=== PATIENT | male | born 1980 | race African-American/Black ===

== ENCOUNTER 2017-05-14 06:45 | Emergency (ER) | payer MEDICAID ==
[~2017-05-14] VITALS: Ht 170.2 cm; Wt 68.0 kg
[~2017-05-14 06:45] MED LIST: AZIT250T PO; BACL-11 PO; CLIN-80 PO; DIPH-423 PO; GUAI120015 PO; HYDR-3927 PO; HYDR12.5 PO; NAPR-56 PO; ONDA4TAB12 PO; ONDA4TAB59 PO; ONDA4TAB6 PO; ONDA8TAB9 PO; PSEU120T55 PO; TOLN30CR TP
[2017-05-14 07:53] LABS: BASOPHILS % (AUTO) 0.5 % (0-1); EOSINOPHILS # (AUTO) 0.3 X10'3 (0-0.9); HEMATOCRIT 43.9 % (42.0-52.0); HEMOGLOBIN 14.8 g/dl (14.0-17.9); LYMPHOCYTES # (AUTO) 1.6 X10'3 (1.1-4.8); LYMPHOCYTES % (AUTO) 22.9 % (21-51); MEAN CORPUSCULAR HEMOGLOBIN 31.8 PG (27.0-31.0); MEAN CORPUSCULAR HGB CONC 33.8 % (33.0-36.5); MEAN CORPUSCULAR VOLUME 94.2 FL (78-98); MEAN PLATELET VOLUME 8.5 FL (7.4-10.4); MONOCYTES # (AUTO) 0.8 X10'3 (0-0.9); MONOCYTES % (AUTO) 11.5 % (2-12); NEUTROPHILS # (AUTO) 4.2 X10'3 (1.8-7.7); NEUTROPHILS % (AUTO) 61.1 % (42-75); PLATELET COUNT 245 X10'3 (140-440); RED BLOOD COUNT 4.66 X10'6 (4.70-6.10); RED CELL DISTRIBUTION WIDTH 13.4 % (11.5-14.5); WHITE BLOOD COUNT 6.9 X10'3 (4.5-11.0)
[2017-05-14 08:15] LABS: ALANINE AMINOTRANSFERASE 34 U/L (12-78); ALBUMIN 3.6 G/DL (3.4-5.0); ALKALINE PHOSPHATASE 70 IU/L (46-116); ANION GAP 6 (8-16); ASPARTATE AMINO TRANSFERASE 26 U/L (10-37); BILIRUBIN,TOTAL 0.3 MG/DL (0.1-1.0); BLOOD UREA NITROGEN 9 MG/DL (7-18); BUN/CREATININE RATIO 9.6 (5.4-32.0); CALCIUM 8.9 MG/DL (8.5-10.1); CHLORIDE 105 MMOL/L (99-107); CREATININE 0.94 MG/DL (0.60-1.10); GLUCOSE 83 MG/DL (70-104); POTASSIUM 3.8 MMOL/L (3.5-5.1); SODIUM 142 MMOL/L (135-145); TOTAL CARBON DIOXIDE 30.7 MMOL/L (24-32); TOTAL PROTEIN 7.2 G/DL (6.4-8.2); eGFR > 90 ML/MIN
[2017-05-14] MEDS ORDERED: AZIT-63 PO (09:40)
[2017-05-14 10:38] VITALS: BP 147/96
[2017-05-28] MEDS ORDERED: CLIN150C2 PO (03:08)
[2017-05-28] MEDS ORDERED: PRED20TA PO (03:08)
[2017-05-29] MEDS ORDERED: ALB0.5UD IH (22:31)
== END 2017-05-14 10:42 | disposition home or self-care (01) ==
LOC: ER 06:45
DX: J20.9 Acute bronchitis, unspecified (principal); G62.9 Polyneuropathy, unspecified; I10 Essential (primary) hypertension; J45.909 Unspecified asthma, uncomplicated; E11.9 Type 2 diabetes mellitus without complications; G89.29 Other chronic pain; M54.9 Dorsalgia, unspecified; F12.10 Cannabis abuse, uncomplicated; F17.210 Nicotine dependence, cigarettes, uncomplicated; Z90.89 Acquired absence of other organs; Z85.118 Personal history of other malignant neoplasm of bronchus and lung; Z59.0 Homelessness; Z88.0 Allergy status to penicillin; Z88.5 Allergy status to narcotic agent; Z79.899 Other long term (current) drug therapy
CPT/HCPCS: 36415; 80053; 85025; 93005; 99285

== ENCOUNTER 2017-08-28 01:36 | Emergency (ER) | payer MEDICAID ==
[~2017-08-28] VITALS: Ht 170.2 cm; Wt 71.1 kg
[2017-08-28] MEDS ORDERED: ondansetron 4mg rapidly disintigrating tab PO ONE (02:10)
[2017-08-28] MEDS ORDERED: ONDA4TAB9 PO (02:11)
[2017-08-28 06:51] VITALS: BP 132/106
== END 2017-08-28 02:30 | disposition home or self-care (01) ==
LOC: ER 01:37
DX: A08.4 Viral intestinal infection, unspecified (principal); I10 Essential (primary) hypertension; J45.909 Unspecified asthma, uncomplicated; G89.29 Other chronic pain; E11.42 Type 2 diabetes mellitus with diabetic polyneuropathy; F12.10 Cannabis abuse, uncomplicated; Z88.6 Allergy status to analgesic agent; Z88.0 Allergy status to penicillin; Z88.5 Allergy status to narcotic agent; Z79.899 Other long term (current) drug therapy; Z59.0 Homelessness; Z85.118 Personal history of other malignant neoplasm of bronchus and lung
CPT/HCPCS: 99283

== ENCOUNTER 2017-09-10 09:04 | Emergency (ER) | payer MEDICAID ==
[~2017-09-10] VITALS: Ht 170.2 cm; Wt 70.0 kg
[~2017-09-10 09:04] MED LIST changes: +ONDA4TAB9 PO
[2017-09-10 09:13] VITALS: BP 150/89
[2017-09-10] MEDS ORDERED: TETanus/Pertussis (Acell)/Diphther VAC/PF (Tdap-Adult) 0.5ml syringe IM ONE (09:45)
== END 2017-09-10 10:13 | disposition home or self-care (01) ==
LOC: ER 09:05
DX: L73.9 Follicular disorder, unspecified (principal); I10 Essential (primary) hypertension; E11.42 Type 2 diabetes mellitus with diabetic polyneuropathy; G89.29 Other chronic pain; J45.909 Unspecified asthma, uncomplicated; F12.10 Cannabis abuse, uncomplicated; Z85.118 Personal history of other malignant neoplasm of bronchus and lung; Z59.0 Homelessness; Z88.0 Allergy status to penicillin; Z88.5 Allergy status to narcotic agent; Z79.899 Other long term (current) drug therapy
CPT/HCPCS: 90471; 90715; 99283

== ENCOUNTER 2017-09-13 07:10 | Emergency (ER) | payer MEDICAID ==
[~2017-09-13] VITALS: Ht 170.2 cm; Wt 70.8 kg
[2017-09-13 07:39] VITALS: BP 152/83
[2017-09-14] MEDS ORDERED: SULF1TAB49 PO (23:48)
[2017-09-14] MEDS ORDERED: CEPH-572 PO (23:49)
== END 2017-09-13 08:01 | disposition home or self-care (01) ==
LOC: ER 07:11
DX: T68.XXXA Hypothermia, initial encounter (principal); T69.9XXA Effect of reduced temperature, unspecified, initial encounter; E11.42 Type 2 diabetes mellitus with diabetic polyneuropathy; I10 Essential (primary) hypertension; J45.909 Unspecified asthma, uncomplicated; G89.29 Other chronic pain; F12.10 Cannabis abuse, uncomplicated; Z85.118 Personal history of other malignant neoplasm of bronchus and lung; Z59.0 Homelessness; Z88.0 Allergy status to penicillin; Z88.5 Allergy status to narcotic agent; Z79.899 Other long term (current) drug therapy; X31.XXXA Exposure to excessive natural cold, initial encounter
CPT/HCPCS: 99283

== ENCOUNTER 2017-09-14 23:28 | Emergency (ER) | payer MEDICAID ==
[~2017-09-14] VITALS: Ht 165.1 cm; Wt 69.3 kg
[2017-09-14] MEDS ORDERED: SULF1TAB49 PO (23:48)
[2017-09-14] MEDS ORDERED: CEPH-572 PO (23:49)
[2017-09-15 00:09] VITALS: BP 138/97
== END 2017-09-15 00:14 | disposition home or self-care (01) ==
LOC: ER 23:28
DX: L02.414 Cutaneous abscess of left upper limb (principal); E11.42 Type 2 diabetes mellitus with diabetic polyneuropathy; I10 Essential (primary) hypertension; J45.909 Unspecified asthma, uncomplicated; G89.29 Other chronic pain; F12.10 Cannabis abuse, uncomplicated; Z85.118 Personal history of other malignant neoplasm of bronchus and lung; Z95.0 Presence of cardiac pacemaker; Z59.0 Homelessness; Z88.0 Allergy status to penicillin; Z88.5 Allergy status to narcotic agent; Z79.899 Other long term (current) drug therapy
CPT/HCPCS: 99283

== ENCOUNTER 2017-09-25 04:11 | Emergency (ER) | payer MEDICAID ==
[~2017-09-25] VITALS: Ht 170.2 cm; Wt 71.4 kg
[2017-09-25 05:01] VITALS: BP 153/101
== END 2017-09-25 05:02 | disposition home or self-care (01) ==
LOC: ER 04:12
DX: J06.9 Acute upper respiratory infection, unspecified (principal); E11.42 Type 2 diabetes mellitus with diabetic polyneuropathy; F17.200 Nicotine dependence, unspecified, uncomplicated; J45.909 Unspecified asthma, uncomplicated; G89.29 Other chronic pain; I10 Essential (primary) hypertension; Z59.0 Homelessness; Z95.0 Presence of cardiac pacemaker; Z88.5 Allergy status to narcotic agent; Z88.0 Allergy status to penicillin; Z79.899 Other long term (current) drug therapy
CPT/HCPCS: 71045; 99283

== ENCOUNTER 2017-10-12 12:11 | Emergency (ER) | payer MEDICAID ==
[~2017-10-12] VITALS: Ht 170.2 cm; Wt 72.0 kg
[~2017-10-12 12:11] MED LIST changes: -BACL-11 PO; -CLIN-80 PO; -DIPH-423 PO; -GUAI120015 PO; -HYDR-3927 PO; -HYDR12.5 PO; -NAPR-56 PO; -ONDA4TAB12 PO; -ONDA4TAB59 PO; -ONDA4TAB6 PO; -ONDA4TAB9 PO; -ONDA8TAB9 PO; -PSEU120T55 PO; -TOLN30CR TP
[2017-10-12 12:47] VITALS: BP 107/63
[2017-10-13] MEDS ORDERED: CLIN300C3 PO (02:31)
== END 2017-10-12 16:06 | disposition left against medical advice (07) ==
LOC: ER 12:12
DX: R51 Headache (principal); Z53.21 Procedure and treatment not carried out due to patient leaving prior to being seen by health care provider

== ENCOUNTER 2017-10-13 01:19 | Emergency (ER) | payer MEDICAID ==
[~2017-10-13] VITALS: Ht 170.2 cm; Wt 75.0 kg
[2017-10-13] MEDS ORDERED: CLIN300C3 PO (02:31)
== END 2017-10-13 02:36 | disposition home or self-care (01) ==
LOC: ER 01:19
DX: L02.01 Cutaneous abscess of face (principal); J45.909 Unspecified asthma, uncomplicated; I10 Essential (primary) hypertension; E11.42 Type 2 diabetes mellitus with diabetic polyneuropathy; G89.29 Other chronic pain; Z88.5 Allergy status to narcotic agent; Z88.0 Allergy status to penicillin; Z95.0 Presence of cardiac pacemaker; Z90.89 Acquired absence of other organs; Z59.0 Homelessness
CPT/HCPCS: 99283

== ENCOUNTER 2017-12-02 04:54 | Emergency (ER) | payer MEDICAID ==
[~2017-12-02] VITALS: Ht 170.2 cm; Wt 74.0 kg
[2017-12-02 04:56] VITALS: BP 135/106
== END 2017-12-02 07:29 | disposition home or self-care (01) ==
LOC: ER 04:54
DX: I10 Essential (primary) hypertension (principal); J45.909 Unspecified asthma, uncomplicated; E11.42 Type 2 diabetes mellitus with diabetic polyneuropathy; F12.10 Cannabis abuse, uncomplicated; G89.29 Other chronic pain; Z59.0 Homelessness; Z88.0 Allergy status to penicillin; Z88.5 Allergy status to narcotic agent; Z95.0 Presence of cardiac pacemaker
CPT/HCPCS: 99281

== ENCOUNTER 2018-03-10 10:22 | Emergency (ER) | payer MEDICAID ==
[~2018-03-10] VITALS: Ht 170.2 cm; Wt 56.0 kg
[2018-03-10 10:40] VITALS: BP 161/113
[2018-03-10 11:06] LABS: COLOR,URINE Yellow (Yellow); GLUCOSE, URINE Negative (Neg); KETONES,URINE Trace mg/dl (Neg); LEUKOCYTE ESTERASE ,URINE Negative (Neg); NITRITES, URINE Negative (Neg); OCCULT BLOOD,URINE Negative (Neg); PROTEIN,URINE Trace mg/dl (Neg)
[2018-03-10 11:07] LABS: UA COLLECTION TYPE CLN CATCH MIDSTREAM
[2018-03-10 11:08] LABS: CLARITY,URINE SLIGHTLY CLOUDY (Clear)
[2018-03-10 11:15] LABS: BACTERIA,URINE FEW /HPF (Neg); MUCUS STRANDS MANY /LPF (Neg); RBC,URINE NONE SEEN /HPF (0-2); SQUAMOUS EPITHELIAL CELL,UR FEW /LPF (FEW); WBC,URINE 0-4 /HPF (0-4)
[2018-03-10 11:27] LABS: BASOPHILS # (AUTO) 0.1 X10'3 (0-0.2); BASOPHILS % (AUTO) 1.1 % (0-1); EOSINOPHILS # (AUTO) 0.2 X10'3 (0-0.9); EOSINOPHILS % (AUTO) 3.8 % (0-6); HEMATOCRIT 42.9 % (42.0-52.0); HEMOGLOBIN 14.7 g/dl (14.0-17.9); LYMPHOCYTES # (AUTO) 2.1 X10'3 (1.1-4.8); MEAN CORPUSCULAR HEMOGLOBIN 32.5 PG (27.0-31.0); MEAN CORPUSCULAR HGB CONC 34.2 % (33.0-36.5); MEAN PLATELET VOLUME 8.3 FL (7.4-10.4); MONOCYTES # (AUTO) 0.6 X10'3 (0-0.9); MONOCYTES % (AUTO) 12.6 % (2-12); NEUTROPHILS # (AUTO) 1.9 X10'3 (1.8-7.7); NEUTROPHILS % (AUTO) 39.5 % (42-75); PLATELET COUNT 251 X10'3 (140-440); RED BLOOD COUNT 4.51 X10'6 (4.70-6.10); WHITE BLOOD COUNT 4.8 X10'3 (4.5-11.0)
[2018-03-10 11:37] LABS: PROTHROMBIN TIME 10.7 SECONDS (9.0-12.0)
[2018-03-10 11:42] LABS: ALANINE AMINOTRANSFERASE 25 U/L (12-78); ALBUMIN 3.8 G/DL (3.4-5.0); ALBUMIN/GLOBULIN RATIO 1.2 (1.1-1.5); ALKALINE PHOSPHATASE 67 IU/L (46-116); ANION GAP 4 (8-16); ASPARTATE AMINO TRANSFERASE 13 U/L (10-37); BILIRUBIN,TOTAL 0.4 MG/DL (0.1-1.0); BLOOD UREA NITROGEN 11 MG/DL (7-18); BUN/CREATININE RATIO 9.2 (5.4-32.0); CALCIUM 8.7 MG/DL (8.5-10.1); CHLORIDE 104 MMOL/L (99-107); CREATININE 1.19 MG/DL (0.60-1.10); GLUCOSE 87 MG/DL (70-104); LIPASE 72 U/L (73-393); POTASSIUM 3.5 MMOL/L (3.5-5.1); SODIUM 138 MMOL/L (135-145); TOTAL CARBON DIOXIDE 29.6 MMOL/L (24-32); eGFR 84 ML/MIN
[2018-03-10] MEDS ORDERED: ibuprofen tablet 400 MG TABLET PO ONE (12:20)
== END 2018-03-10 13:56 | disposition home or self-care (01) ==
LOC: ER 10:22
DX: R07.81 Pleurodynia (principal); R11.0 Nausea; R06.02 Shortness of breath; F12.10 Cannabis abuse, uncomplicated; I10 Essential (primary) hypertension; J45.909 Unspecified asthma, uncomplicated; G89.29 Other chronic pain; F32.9 Major depressive disorder, single episode, unspecified; F20.9 Schizophrenia, unspecified; E11.42 Type 2 diabetes mellitus with diabetic polyneuropathy; Z88.0 Allergy status to penicillin; Z59.0 Homelessness; Z88.5 Allergy status to narcotic agent; Z85.118 Personal history of other malignant neoplasm of bronchus and lung; X50.9XXA Other and unspecified overexertion or strenuous movements or postures, initial encounter; Y93.39 Activity, other involving climbing, rappelling and jumping off; Y92.89 Other specified places as the place of occurrence of the external cause; Y99.8 Other external cause status
CPT/HCPCS: 36415; 80053; 81001; 83690; 85025; 85610; 99284

== ENCOUNTER 2018-04-22 04:50 | Emergency (ER) | payer MEDICAID ==
[~2018-04-22] VITALS: Ht 160 cm; Wt 56.2 kg
[2018-04-22 05:12] VITALS: BP 153/110
[2018-04-22] MEDS ORDERED: AZIT-63 PO (05:26)
[2018-04-22] MEDS ORDERED: PSEU120T55 PO (05:26)
[2018-04-22] MEDS ORDERED: IBUP-1986 PO (05:26)
== END 2018-04-22 05:41 | disposition home or self-care (01) ==
LOC: ER 04:51
DX: H66.91 Otitis media, unspecified, right ear (principal); E11.42 Type 2 diabetes mellitus with diabetic polyneuropathy; I10 Essential (primary) hypertension; J45.909 Unspecified asthma, uncomplicated; G89.29 Other chronic pain; F12.90 Cannabis use, unspecified, uncomplicated; Z95.0 Presence of cardiac pacemaker; Z98.890 Other specified postprocedural states; Z59.0 Homelessness; Z88.0 Allergy status to penicillin; Z88.5 Allergy status to narcotic agent; Z79.2 Long term (current) use of antibiotics; Z79.899 Other long term (current) drug therapy
CPT/HCPCS: 99283

== ENCOUNTER 2018-05-25 11:25 | Emergency (ER) | payer MEDICAID ==
[~2018-05-25] VITALS: Ht 172.7 cm; Wt 72.0 kg
[~2018-05-25 11:25] MED LIST changes: +IBUP-1986 PO; +PSEU120T55 PO
[2018-05-25] MEDS ORDERED: LORazepam 1 MG tablet PO ONE (12:20)
[2018-05-25] MEDS ORDERED: haloperidol lactate 5mg/ml inj IM ONE (12:20)
[2018-05-25 13:38] VITALS: BP 150/100
== END 2018-05-25 13:39 | disposition home or self-care (01) ==
LOC: ER 11:26
DX: R10.13 Epigastric pain (principal); Z88.5 Allergy status to narcotic agent; F12.10 Cannabis abuse, uncomplicated; F15.10 Other stimulant abuse, uncomplicated; I10 Essential (primary) hypertension; J45.909 Unspecified asthma, uncomplicated; G89.29 Other chronic pain; F32.9 Major depressive disorder, single episode, unspecified; F20.9 Schizophrenia, unspecified; E11.42 Type 2 diabetes mellitus with diabetic polyneuropathy; Z88.0 Allergy status to penicillin; Z59.0 Homelessness; Z85.118 Personal history of other malignant neoplasm of bronchus and lung; R11.0 Nausea
CPT/HCPCS: 96372; 99283; J1630

== ENCOUNTER 2018-05-30 10:07 | Emergency (ER) | payer MEDICAID ==
[~2018-05-30] VITALS: Ht 170.2 cm; Wt 66.7 kg
[2018-05-30 10:57] LABS: BASOPHILS # (AUTO) 0.1 X10'3 (0-0.2); BASOPHILS % (AUTO) 1.2 % (0-1); EOSINOPHILS # (AUTO) 0.3 X10'3 (0-0.9); EOSINOPHILS % (AUTO) 4.2 % (0-6); HEMATOCRIT 45.3 % (42.0-52.0); LYMPHOCYTES # (AUTO) 2.5 X10'3 (1.1-4.8); LYMPHOCYTES % (AUTO) 41.7 % (21-51); MEAN CORPUSCULAR HEMOGLOBIN 31.5 PG (27.0-31.0); MEAN CORPUSCULAR HGB CONC 33.1 % (33.0-36.5); MEAN CORPUSCULAR VOLUME 95.1 FL (78-98); MEAN PLATELET VOLUME 8.5 FL (7.4-10.4); MONOCYTES # (AUTO) 0.4 X10'3 (0-0.9); MONOCYTES % (AUTO) 7.5 % (2-12); NEUTROPHILS # (AUTO) 2.7 X10'3 (1.8-7.7); NEUTROPHILS % (AUTO) 45.4 % (42-75); PLATELET COUNT 260 X10'3 (140-440); RED BLOOD COUNT 4.77 X10'6 (4.70-6.10); RED CELL DISTRIBUTION WIDTH 13.7 % (11.5-14.5)
[2018-05-30 11:07] LABS: ALANINE AMINOTRANSFERASE 29 U/L (12-78); ALBUMIN/GLOBULIN RATIO 1.1 (1.1-1.5); ALKALINE PHOSPHATASE 77 IU/L (46-116); ANION GAP 9 (8-16); ASPARTATE AMINO TRANSFERASE 21 U/L (10-37); BILIRUBIN,TOTAL 0.4 MG/DL (0.1-1.0); BLOOD UREA NITROGEN 13 MG/DL (7-18); BUN/CREATININE RATIO 14.6 (5.4-32.0); CALCIUM 9.4 MG/DL (8.5-10.1); CHLORIDE 102 MMOL/L (99-107); CREATININE 0.89 MG/DL (0.60-1.10); GLUCOSE 88 MG/DL (70-104); SODIUM 140 MMOL/L (135-145); TOTAL CARBON DIOXIDE 29.3 MMOL/L (24-32); TOTAL PROTEIN 7.8 G/DL (6.4-8.2); eGFR > 90 ML/MIN
[2018-05-30] MEDS ORDERED: LIDOcaine Viscous 15ml cup PO ONE (12:05)
[2018-05-30] MEDS ORDERED: magnesium hydroxide 30ml (MOM) UD suspension PO ONE (12:05)
[2018-05-30] MEDS ORDERED: dicyclomine 10 MG capsule PO ONE (12:05)
[2018-05-30 12:20] VITALS: BP 97/58
== END 2018-05-30 13:49 | disposition home or self-care (01) ==
LOC: ER 10:08
DX: R10.13 Epigastric pain (principal); I10 Essential (primary) hypertension; J44.9 Chronic obstructive pulmonary disease, unspecified; E11.42 Type 2 diabetes mellitus with diabetic polyneuropathy; F15.90 Other stimulant use, unspecified, uncomplicated; F12.90 Cannabis use, unspecified, uncomplicated; Z88.0 Allergy status to penicillin; Z88.6 Allergy status to analgesic agent; Z90.89 Acquired absence of other organs; Z95.0 Presence of cardiac pacemaker; Z59.0 Homelessness
CPT/HCPCS: 36415; 80053; 85025; 85610; 99284

== ENCOUNTER 2018-06-04 06:57 | Emergency (ER) | payer MEDICAID ==
[~2018-06-04] VITALS: Ht 170.2 cm; Wt 68.2 kg
[2018-06-04 07:18] VITALS: BP 143/99
== END 2018-06-04 07:45 | disposition home or self-care (01) ==
LOC: ER 06:57
DX: T69.9XXA Effect of reduced temperature, unspecified, initial encounter (principal); J32.9 Chronic sinusitis, unspecified; E11.42 Type 2 diabetes mellitus with diabetic polyneuropathy; I10 Essential (primary) hypertension; G89.29 Other chronic pain; F12.90 Cannabis use, unspecified, uncomplicated; J45.909 Unspecified asthma, uncomplicated; F15.90 Other stimulant use, unspecified, uncomplicated; Z59.0 Homelessness; Z95.0 Presence of cardiac pacemaker; Z90.89 Acquired absence of other organs; Z85.118 Personal history of other malignant neoplasm of bronchus and lung; Z88.0 Allergy status to penicillin; Z88.5 Allergy status to narcotic agent; Y92.9 Unspecified place or not applicable
CPT/HCPCS: 99283

== ENCOUNTER 2018-06-24 17:36 | Emergency (ER) | payer MEDICAID ==
[~2018-06-24] VITALS: Ht 170.2 cm; Wt 72.7 kg
[2018-06-24 17:49] VITALS: BP 149/101
== END 2018-06-24 18:29 | disposition left against medical advice (07) ==
LOC: ER 17:36
DX: R05 Cough (principal); R09.89 Other specified symptoms and signs involving the circulatory and respiratory systems; J00 Acute nasopharyngitis [common cold]; Z53.21 Procedure and treatment not carried out due to patient leaving prior to being seen by health care provider

== ENCOUNTER 2018-07-24 03:26 | Emergency (ER) | payer MEDICAID ==
[~2018-07-24] VITALS: Ht 170.2 cm; Wt 72.9 kg
[2018-07-24 03:29] VITALS: BP 156/105
--- NOTE | 2018-07-24 03:41 | NUR ---
AT BED FOR EXAMINATION.
== END 2018-07-24 04:09 | disposition home or self-care (01) ==
LOC: ER 03:27
DX: J06.9 Acute upper respiratory infection, unspecified (principal); E11.42 Type 2 diabetes mellitus with diabetic polyneuropathy; I10 Essential (primary) hypertension; J45.909 Unspecified asthma, uncomplicated; G89.29 Other chronic pain; Z90.89 Acquired absence of other organs; Z95.0 Presence of cardiac pacemaker; F12.90 Cannabis use, unspecified, uncomplicated; F15.90 Other stimulant use, unspecified, uncomplicated; Z88.0 Allergy status to penicillin; Z88.5 Allergy status to narcotic agent; Z79.2 Long term (current) use of antibiotics; Z79.899 Other long term (current) drug therapy; Z59.0 Homelessness
CPT/HCPCS: 99281

== ENCOUNTER 2018-08-28 06:57 | Emergency (ER) | payer MEDICAID ==
[~2018-08-28] VITALS: Ht 170.2 cm; Wt 70.2 kg
[2018-08-28] MEDS ORDERED: SUCR1TAB34 PO (07:49)
[2018-08-28] MEDS ORDERED: PANT-47 PO (07:49)
[2018-08-28] MEDS ORDERED: mag hydrox/Alum hydrox/simeth 30ml oral suspension PO ONE (07:50)
[2018-08-28] MEDS ORDERED: pantoprazole 40mg Tablet.DR PO ONE (07:50)
[2018-08-28] MEDS ORDERED: LIDOcaine Viscous 15ml cup PO ONE (07:50)
--- NOTE | 2018-08-28 08:04 | NUR ---
pt states his abd pain improving and his pain is now a 1 out of 10, meds administered per MD order
[2018-08-28 08:12] VITALS: BP 157/96
== END 2018-08-28 08:16 | disposition home or self-care (01) ==
LOC: ER 06:58
DX: R10.13 Epigastric pain (principal); E11.42 Type 2 diabetes mellitus with diabetic polyneuropathy; I10 Essential (primary) hypertension; J45.909 Unspecified asthma, uncomplicated; G89.29 Other chronic pain; F12.90 Cannabis use, unspecified, uncomplicated; F15.90 Other stimulant use, unspecified, uncomplicated; Z95.0 Presence of cardiac pacemaker; Z98.890 Other specified postprocedural states; Z59.0 Homelessness; Z88.0 Allergy status to penicillin; Z88.5 Allergy status to narcotic agent; Z79.2 Long term (current) use of antibiotics; Z79.899 Other long term (current) drug therapy
CPT/HCPCS: 99284

== ENCOUNTER 2018-09-05 08:55 | Emergency (ER) | payer MEDICAID ==
[~2018-09-05] VITALS: Ht 172.7 cm; Wt 58.5 kg
[~2018-09-05 08:55] MED LIST changes: +PANT-47 PO; +SUCR1TAB34 PO
[2018-09-05 09:12] VITALS: BP 153/104
[2018-09-05] MEDS ORDERED: SULF1TAB49 PO (10:50)
--- NOTE | 2018-09-05 11:04 | NUR ---
patient seen and discharged by provider
[2018-09-07 08:17] LABS: RPR Non Reactive (Non Reactive)
== END 2018-09-05 11:04 | disposition home or self-care (01) ==
LOC: ER 08:56
DX: L02.211 Cutaneous abscess of abdominal wall (principal); I10 Essential (primary) hypertension; G89.29 Other chronic pain; F15.90 Other stimulant use, unspecified, uncomplicated; F12.90 Cannabis use, unspecified, uncomplicated; E11.9 Type 2 diabetes mellitus without complications; E11.42 Type 2 diabetes mellitus with diabetic polyneuropathy; Z79.899 Other long term (current) drug therapy; Z59.0 Homelessness; Z88.0 Allergy status to penicillin; Z88.6 Allergy status to analgesic agent; Z90.89 Acquired absence of other organs; Z95.0 Presence of cardiac pacemaker
CPT/HCPCS: 36415; 86592; 99283

== ENCOUNTER 2018-09-19 19:55 | Emergency (ER) | payer MEDICAID ==
[~2018-09-19] VITALS: Ht 170.2 cm; Wt 72.7 kg
[2018-09-19 20:03] VITALS: BP 159/111
[2018-09-19] MEDS ORDERED: DIPH25CA83 PO (21:57)
== END 2018-09-19 22:07 | disposition home or self-care (01) ==
LOC: ER 19:55
DX: L29.9 Pruritus, unspecified (principal); I10 Essential (primary) hypertension; E11.40 Type 2 diabetes mellitus with diabetic neuropathy, unspecified; G89.29 Other chronic pain; M54.9 Dorsalgia, unspecified; F12.90 Cannabis use, unspecified, uncomplicated; F15.90 Other stimulant use, unspecified, uncomplicated; J45.909 Unspecified asthma, uncomplicated; Z95.0 Presence of cardiac pacemaker; Z59.0 Homelessness; Z88.6 Allergy status to analgesic agent; Z88.0 Allergy status to penicillin
CPT/HCPCS: 82948; 99282

== ENCOUNTER 2018-09-21 02:51 | Emergency (ER) | payer MEDICAID ==
[~2018-09-21] VITALS: Ht 172.7 cm; Wt 70.0 kg
[~2018-09-21 02:51] MED LIST changes: +DIPH25CA83 PO
[2018-09-21 02:58] VITALS: BP 113/66
== END 2018-09-21 03:13 | disposition home or self-care (01) ==
LOC: ER 02:52
DX: L29.8 Other pruritus (principal); G89.29 Other chronic pain; I10 Essential (primary) hypertension; F20.9 Schizophrenia, unspecified; F32.9 Major depressive disorder, single episode, unspecified; F17.200 Nicotine dependence, unspecified, uncomplicated; F12.10 Cannabis abuse, uncomplicated; F15.10 Other stimulant abuse, uncomplicated; E11.42 Type 2 diabetes mellitus with diabetic polyneuropathy; J45.909 Unspecified asthma, uncomplicated; Z85.118 Personal history of other malignant neoplasm of bronchus and lung; Z88.0 Allergy status to penicillin; Z59.0 Homelessness; Z95.0 Presence of cardiac pacemaker; Z88.5 Allergy status to narcotic agent
CPT/HCPCS: 99281

== ENCOUNTER 2018-11-08 02:23 | Emergency (ER) | payer MEDICAID ==
[~2018-11-08] VITALS: Ht 172.7 cm; Wt 70.2 kg
[2018-11-08 02:26] VITALS: BP 163/115
== END 2018-11-08 03:02 | disposition home or self-care (01) ==
LOC: ER 02:24
DX: Z02.89 Encounter for other administrative examinations (principal); R45.1 Restlessness and agitation; E11.42 Type 2 diabetes mellitus with diabetic polyneuropathy; I10 Essential (primary) hypertension; J45.909 Unspecified asthma, uncomplicated; G89.29 Other chronic pain; F12.90 Cannabis use, unspecified, uncomplicated; F15.90 Other stimulant use, unspecified, uncomplicated; Z95.0 Presence of cardiac pacemaker; Z98.890 Other specified postprocedural states; Z88.0 Allergy status to penicillin; Z88.5 Allergy status to narcotic agent; Z79.2 Long term (current) use of antibiotics; Z79.899 Other long term (current) drug therapy
CPT/HCPCS: 99281

== ENCOUNTER 2018-12-10 01:58 | Emergency (ER) | payer MEDICAID ==
[~2018-12-10] VITALS: Ht 172.7 cm; Wt 54.5 kg
[2018-12-10 02:13] VITALS: BP 192/115
[2018-12-10] MEDS ORDERED: diphenhydrAMINE 25mg capsule PO ONE (03:05)
== END 2018-12-10 03:20 | disposition home or self-care (01) ==
LOC: ER 01:58
DX: L29.9 Pruritus, unspecified (principal); E11.42 Type 2 diabetes mellitus with diabetic polyneuropathy; I10 Essential (primary) hypertension; J45.909 Unspecified asthma, uncomplicated; G89.29 Other chronic pain; F12.90 Cannabis use, unspecified, uncomplicated; F15.90 Other stimulant use, unspecified, uncomplicated; Z88.0 Allergy status to penicillin; Z88.5 Allergy status to narcotic agent; Z79.899 Other long term (current) drug therapy; Z59.0 Homelessness
CPT/HCPCS: 99282; Q0163

== ENCOUNTER 2019-05-19 08:22 | Emergency (ER) | payer MEDICAID, OTHER ==
[~2019-05-19] VITALS: Ht 172.7 cm; Wt 72.7 kg
[2019-05-19] MEDS ORDERED: normal saline 1000ML IV soln IVB ONE (08:55)
[2019-05-19 10:34] VITALS: BP 152/109
== END 2019-05-19 10:38 | disposition home or self-care (01) ==
LOC: ER 08:22
DX: E86.0 Dehydration (principal); E11.42 Type 2 diabetes mellitus with diabetic polyneuropathy; I10 Essential (primary) hypertension; J45.909 Unspecified asthma, uncomplicated; G89.29 Other chronic pain; F31.9 Bipolar disorder, unspecified; F20.9 Schizophrenia, unspecified; F12.90 Cannabis use, unspecified, uncomplicated; F15.90 Other stimulant use, unspecified, uncomplicated; Z85.118 Personal history of other malignant neoplasm of bronchus and lung; Z95.0 Presence of cardiac pacemaker; Z90.89 Acquired absence of other organs; Z98.890 Other specified postprocedural states; Z59.0 Homelessness; Z88.0 Allergy status to penicillin; Z88.5 Allergy status to narcotic agent; Z79.899 Other long term (current) drug therapy
CPT/HCPCS: 96360; 99283; J7030

== ENCOUNTER 2019-05-20 18:10 | Emergency (ER) | payer MEDICAID, OTHER ==
[~2019-05-20] VITALS: Ht 172.7 cm; Wt 68.0 kg
[2019-05-20 18:25] VITALS: BP 143/92
[2019-05-20] MEDS ORDERED: bacitracin 15gm ointment TP ONE (19:00)
[2019-05-20] MEDS ORDERED: TETanus/Pertussis (Acell)/Diphther VAC/PF (Tdap-Adult) 0.5ml syringe IM ONE (19:00)
== END 2019-05-20 19:47 | disposition home or self-care (01) ==
LOC: ER 18:12
DX: S81.812A Laceration without foreign body, left lower leg, initial encounter (principal); E11.42 Type 2 diabetes mellitus with diabetic polyneuropathy; I10 Essential (primary) hypertension; J45.909 Unspecified asthma, uncomplicated; G89.29 Other chronic pain; F31.9 Bipolar disorder, unspecified; F20.9 Schizophrenia, unspecified; F12.90 Cannabis use, unspecified, uncomplicated; F15.90 Other stimulant use, unspecified, uncomplicated; Z95.0 Presence of cardiac pacemaker; Z90.89 Acquired absence of other organs; Z98.890 Other specified postprocedural states; Z59.0 Homelessness; Z85.118 Personal history of other malignant neoplasm of bronchus and lung; Z88.0 Allergy status to penicillin; Z88.5 Allergy status to narcotic agent; Z79.899 Other long term (current) drug therapy; W25.XXXA Contact with sharp glass, initial encounter; Y93.89 Activity, other specified; Y92.89 Other specified places as the place of occurrence of the external cause; Y99.8 Other external cause status
CPT/HCPCS: 12001; 90471; 99283

== ENCOUNTER 2019-07-18 22:24 | Emergency (ER) | payer SELFPAY ==
[~2019-07-18] VITALS: Ht 172.7 cm; Wt 65.0 kg
[2019-07-19 01:10] VITALS: BP 137/85
[2019-07-19] MEDS ORDERED: SULF1TAB48 PO (01:22)
[2019-07-19] MEDS ORDERED: sulfamethoxazole/trimethoprim DS (800/160mg) tablet PO ONE (01:25)
[2019-07-19] MEDS ORDERED: naproxen 500mg tablet PO ONE (01:25)
[2019-07-19] MEDS ORDERED: lidocaine 1.5% w/epinephrine 1:200,000 10ml vial MPF IJ ONE (01:25)
[2019-07-19] MEDS ORDERED: TETanus/Pertussis (Acell)/Diphther VAC/PF (Tdap-Adult) 0.5ml syringe IMVAC ONE (01:25)
--- NOTE | 2019-07-19 01:26 | NUR ---
pt left the ER briskly and I went out to [facility] to talk to him with security. He is refusing all treatment. He said he doesn't want his prescription as well. I handed him his prescription and he said "No, I don't want it." I asked him again to take it, it is a prescription for an antibiotic that he needs and he said "No, I don't want it. I don't need it." MD royal.
[2019-07-19] MEDS ORDERED: LIDOcaine 1% w/epiNEPHrine 1:200,000 30ml vial IJ ONE (01:30)
== END 2019-07-19 01:28 | disposition home or self-care (01) ==
LOC: ER 22:25
DX: L02.413 Cutaneous abscess of right upper limb (principal); I10 Essential (primary) hypertension; J45.909 Unspecified asthma, uncomplicated; E11.42 Type 2 diabetes mellitus with diabetic polyneuropathy; G89.29 Other chronic pain; F31.9 Bipolar disorder, unspecified; F20.9 Schizophrenia, unspecified; Z95.0 Presence of cardiac pacemaker; Z98.890 Other specified postprocedural states; F12.90 Cannabis use, unspecified, uncomplicated; F15.90 Other stimulant use, unspecified, uncomplicated; Z59.0 Homelessness; Z88.0 Allergy status to penicillin; Z88.5 Allergy status to narcotic agent; Z79.2 Long term (current) use of antibiotics; Z79.899 Other long term (current) drug therapy
CPT/HCPCS: 99283

== ENCOUNTER 2021-09-06 06:34 | Emergency (ER) | payer MEDICAID ==
[~2021-09-06] VITALS: Ht 172.7 cm; Wt 90.0 kg
[2021-09-06] MEDS ORDERED: OMEP40CA21 PO ×2 (07:06→07:07)
[2021-09-06 07:19] VITALS: BP 150/98
== END 2021-09-06 07:21 | disposition home or self-care (01) ==
LOC: ER 06:35
DX: R10.13 Epigastric pain (principal); F12.10 Cannabis abuse, uncomplicated; F15.10 Other stimulant abuse, uncomplicated; I10 Essential (primary) hypertension; J45.909 Unspecified asthma, uncomplicated; F31.9 Bipolar disorder, unspecified; G89.29 Other chronic pain; M54.9 Dorsalgia, unspecified; Z59.00 Homelessness unspecified; Z88.0 Allergy status to penicillin; Z88.5 Allergy status to narcotic agent; Z79.899 Other long term (current) drug therapy
CPT/HCPCS: 99283

== ENCOUNTER 2021-10-15 18:09 | Emergency (ER) | payer MEDICAID ==
[~2021-10-15] VITALS: Ht 172.7 cm; Wt 90.0 kg
[~2021-10-15 18:09] MED LIST changes: +OMEP40CA21 PO
[2021-10-15 21:22] VITALS: BP 114/71
[2021-10-15] MEDS ORDERED: TETanus/Pertussis (Acell)/Diphther VAC/PF (Tdap-Adult) 0.5ml syringe IMVAC ONE (22:25)
[2021-10-15] MEDS ORDERED: SULF1TAB49 PO (22:42)
[2021-10-15] MEDS ORDERED: sulfamethoxazole/trimethoprim DS (800/160mg) tablet PO ONE (23:10)
[2021-10-15] MEDS ORDERED: ibuprofen tablet 400 MG TABLET PO ONE (23:10)
== END 2021-10-15 23:28 ==
LOC: ER 18:10
DX: L02.01 Cutaneous abscess of face (principal); I10 Essential (primary) hypertension; J45.909 Unspecified asthma, uncomplicated; E11.9 Type 2 diabetes mellitus without complications; G89.29 Other chronic pain; M54.9 Dorsalgia, unspecified; F32.9 Major depressive disorder, single episode, unspecified; F20.9 Schizophrenia, unspecified; F12.10 Cannabis abuse, uncomplicated; F15.10 Other stimulant abuse, uncomplicated; Z59.00 Homelessness unspecified; Z88.0 Allergy status to penicillin; Z88.5 Allergy status to narcotic agent; Z79.899 Other long term (current) drug therapy
CPT/HCPCS: 10060; 12013; 90471; 90715; 99283

== ENCOUNTER 2021-12-25 12:03 | Emergency (ER) | payer MEDICAID ==
[~2021-12-25] VITALS: Ht 172.7 cm; Wt 72.5 kg
[2021-12-25 12:18] VITALS: BP 122/91
[2021-12-25] MEDS ORDERED: benzonatate 100mg capsule PO ONE (14:25)
[2021-12-25] MEDS ORDERED: BENZ-38 PO (14:58)
== END 2021-12-25 15:15 | disposition home or self-care (01) ==
LOC: ER 12:04
DX: R05.9 Cough, unspecified (principal); I10 Essential (primary) hypertension; J45.909 Unspecified asthma, uncomplicated; E11.42 Type 2 diabetes mellitus with diabetic polyneuropathy; G89.29 Other chronic pain; F31.9 Bipolar disorder, unspecified; F20.9 Schizophrenia, unspecified; F12.90 Cannabis use, unspecified, uncomplicated; F15.90 Other stimulant use, unspecified, uncomplicated; Z59.00 Homelessness unspecified; Z98.890 Other specified postprocedural states; Z88.0 Allergy status to penicillin; Z88.5 Allergy status to narcotic agent; Z79.899 Other long term (current) drug therapy; Z90.89 Acquired absence of other organs; Z95.0 Presence of cardiac pacemaker
CPT/HCPCS: 71045; 99283

== ENCOUNTER 2022-04-03 13:49 | Emergency (ER) | payer MEDICAID ==
[~2022-04-03] VITALS: Ht 172.7 cm; Wt 75.0 kg
[2022-04-03 14:02] VITALS: BP 137/98
[2022-04-03] MEDS ORDERED: LIDOCAINE 1%/EPI 1:100,000 inj. 10 ML multi-dose vial IJ ONE (14:10)
[2022-04-03] MEDS ORDERED: TETanus/Pertussis (Acell)/Diphther VAC/PF (Tdap-Adult) 0.5ml syringe IMVAC ONE (14:10)
[2022-04-03] MEDS ORDERED: bacitracin 15gm ointment TP ONE (14:10)
[2022-04-03] MEDS ORDERED: CEPH500C2 PO (16:00)
== END 2022-04-03 16:47 | disposition home or self-care (01) ==
LOC: ER 13:49
DX: L03.113 Cellulitis of right upper limb (principal); L02.413 Cutaneous abscess of right upper limb; R53.83 Other fatigue; E11.42 Type 2 diabetes mellitus with diabetic polyneuropathy; I10 Essential (primary) hypertension; J45.909 Unspecified asthma, uncomplicated; G89.29 Other chronic pain; F31.9 Bipolar disorder, unspecified; F20.9 Schizophrenia, unspecified; F12.90 Cannabis use, unspecified, uncomplicated; F15.90 Other stimulant use, unspecified, uncomplicated; Z85.118 Personal history of other malignant neoplasm of bronchus and lung; Z95.0 Presence of cardiac pacemaker; Z90.89 Acquired absence of other organs; Z98.890 Other specified postprocedural states; Z59.00 Homelessness unspecified; Z88.0 Allergy status to penicillin; Z88.5 Allergy status to narcotic agent; Z79.2 Long term (current) use of antibiotics; Z79.899 Other long term (current) drug therapy
CPT/HCPCS: 10060; 99283

== ENCOUNTER 2022-04-05 07:23 | Emergency (ER) | payer MEDICAID ==
[~2022-04-05] VITALS: Ht 172.7 cm; Wt 75.0 kg
[~2022-04-05 07:23] MED LIST changes: +CEPH500C2 PO
[2022-04-05 07:25] VITALS: BP 154/100
== END 2022-04-05 08:55 | disposition home or self-care (01) ==
LOC: ER 07:24
DX: L02.511 Cutaneous abscess of right hand (principal); I10 Essential (primary) hypertension; J45.909 Unspecified asthma, uncomplicated; G89.29 Other chronic pain; M54.9 Dorsalgia, unspecified; E11.9 Type 2 diabetes mellitus without complications; F20.9 Schizophrenia, unspecified; F32.A Depression, unspecified; F15.10 Other stimulant abuse, uncomplicated; F12.10 Cannabis abuse, uncomplicated; Z59.00 Homelessness unspecified; E06.9 Thyroiditis, unspecified; Z88.0 Allergy status to penicillin; Z88.5 Allergy status to narcotic agent; Z79.899 Other long term (current) drug therapy; Z79.1 Long term (current) use of non-steroidal anti-inflammatories (NSAID); Z79.2 Long term (current) use of antibiotics
CPT/HCPCS: 99282; J7030; A6449

== ENCOUNTER 2022-04-09 08:16 | Emergency (ER) | payer MEDICAID ==
[~2022-04-09] VITALS: Ht 172.7 cm; Wt 68.0 kg
[2022-04-09 08:22] VITALS: BP 156/106
== END 2022-04-09 09:50 | disposition home or self-care (01) ==
LOC: ER 08:16
DX: S51.801D Unspecified open wound of right forearm, subsequent encounter (principal); Z48.00 Encounter for change or removal of nonsurgical wound dressing; I10 Essential (primary) hypertension; E11.9 Type 2 diabetes mellitus without complications; F31.9 Bipolar disorder, unspecified; F20.9 Schizophrenia, unspecified; G89.29 Other chronic pain; M54.9 Dorsalgia, unspecified; F12.10 Cannabis abuse, uncomplicated; F15.10 Other stimulant abuse, uncomplicated; F17.200 Nicotine dependence, unspecified, uncomplicated; Z59.00 Homelessness unspecified; Z88.0 Allergy status to penicillin; Z88.5 Allergy status to narcotic agent; Z79.899 Other long term (current) drug therapy; Z79.1 Long term (current) use of non-steroidal anti-inflammatories (NSAID); Z79.2 Long term (current) use of antibiotics; X58.XXXD Exposure to other specified factors, subsequent encounter
CPT/HCPCS: 99281

== ENCOUNTER 2022-04-17 09:55 | Emergency (ER) | payer MEDICAID ==
[~2022-04-17] VITALS: Ht 172.7 cm; Wt 75.0 kg
[~2022-04-17 09:55] MED LIST changes: -CEPH500C2 PO
[2022-04-17 09:56] VITALS: BP 134/91
== END 2022-04-17 11:18 | disposition home or self-care (01) ==
LOC: ER 09:55
DX: S41.101A Unspecified open wound of right upper arm, initial encounter (principal); E11.42 Type 2 diabetes mellitus with diabetic polyneuropathy; I10 Essential (primary) hypertension; J45.909 Unspecified asthma, uncomplicated; G89.29 Other chronic pain; F31.9 Bipolar disorder, unspecified; F20.9 Schizophrenia, unspecified; F12.90 Cannabis use, unspecified, uncomplicated; F15.90 Other stimulant use, unspecified, uncomplicated; Z85.118 Personal history of other malignant neoplasm of bronchus and lung; Z95.0 Presence of cardiac pacemaker; Z90.89 Acquired absence of other organs; Z98.890 Other specified postprocedural states; Z59.00 Homelessness unspecified; Z88.0 Allergy status to penicillin; Z88.5 Allergy status to narcotic agent; Z79.2 Long term (current) use of antibiotics; Z79.899 Other long term (current) drug therapy; W57.XXXA Bitten or stung by nonvenomous insect and other nonvenomous arthropods, initial encounter; Y93.89 Activity, other specified; Y92.89 Other specified places as the place of occurrence of the external cause; Y99.8 Other external cause status
CPT/HCPCS: 99281

== ENCOUNTER 2022-07-08 00:35 | Emergency (ER) | payer MEDICAID ==
[~2022-07-08] VITALS: Ht 172.7 cm; Wt 64.6 kg
[2022-07-08 00:40] VITALS: BP 143/95
== END 2022-07-08 04:30 | disposition home or self-care (01) ==
LOC: ER 00:36
DX: J06.9 Acute upper respiratory infection, unspecified (principal); Z20.822 Contact with and (suspected) exposure to COVID-19; I10 Essential (primary) hypertension; J45.909 Unspecified asthma, uncomplicated; E11.9 Type 2 diabetes mellitus without complications; G89.29 Other chronic pain; M54.50 Low back pain, unspecified; F15.20 Other stimulant dependence, uncomplicated; F12.90 Cannabis use, unspecified, uncomplicated; Z88.0 Allergy status to penicillin; Z88.5 Allergy status to narcotic agent; Z59.00 Homelessness unspecified
CPT/HCPCS: 71045; 87502; 87503; 87635; 99284; C9803

== ENCOUNTER 2022-07-22 07:36 | Emergency (ER) | payer MEDICAID ==
[~2022-07-22] VITALS: Ht 172.7 cm; Wt 75.0 kg
[2022-07-22 08:15] VITALS: BP 155/101
== END 2022-07-22 10:20 | disposition left against medical advice (07) ==
LOC: ER 07:37
DX: L02.413 Cutaneous abscess of right upper limb (principal); Z53.21 Procedure and treatment not carried out due to patient leaving prior to being seen by health care provider

== ENCOUNTER 2022-08-11 04:41 | Emergency (ER) | payer MEDICAID ==
[~2022-08-11] VITALS: Ht 172.7 cm; Wt 81.8 kg
[2022-08-11 05:05] VITALS: BP 164/110
== END 2022-08-11 06:57 | disposition home or self-care (01) ==
LOC: ER 04:42
DX: T75.89XA Other specified effects of external causes, initial encounter (principal); T68.XXXA Hypothermia, initial encounter; Z59.00 Homelessness unspecified; I10 Essential (primary) hypertension; J45.909 Unspecified asthma, uncomplicated; G89.29 Other chronic pain; E11.42 Type 2 diabetes mellitus with diabetic polyneuropathy; F31.9 Bipolar disorder, unspecified; F20.9 Schizophrenia, unspecified; F17.200 Nicotine dependence, unspecified, uncomplicated; F12.90 Cannabis use, unspecified, uncomplicated; F15.90 Other stimulant use, unspecified, uncomplicated; Z90.89 Acquired absence of other organs; Z95.0 Presence of cardiac pacemaker; Z88.0 Allergy status to penicillin; Z88.5 Allergy status to narcotic agent; Z79.899 Other long term (current) drug therapy; X58.XXXA Exposure to other specified factors, initial encounter; Y93.89 Activity, other specified; Y92.89 Other specified places as the place of occurrence of the external cause; Y99.8 Other external cause status
CPT/HCPCS: 99281

== ENCOUNTER 2022-08-28 04:09 | Emergency (ER) | payer MEDICAID ==
[~2022-08-28] VITALS: Ht 172.7 cm; Wt 55.0 kg
[2022-08-28 04:21] VITALS: BP 138/104
--- NOTE | 2022-08-28 07:43 | NUR ---
Called for patient from waiting [facility] @[phone], not in lobby.
== END 2022-08-28 07:52 | disposition left against medical advice (07) ==
LOC: ER 04:10
DX: R10.9 Unspecified abdominal pain (principal); Z53.21 Procedure and treatment not carried out due to patient leaving prior to being seen by health care provider

== ENCOUNTER 2022-09-18 14:36 | Emergency (ER) | payer MEDICAID ==
[~2022-09-18] VITALS: Ht 172.7 cm; Wt 75.0 kg
[2022-09-18 15:03] VITALS: BP 158/93
== END 2022-09-18 18:51 | disposition left against medical advice (07) ==
LOC: ER 14:37
DX: R05.9 Cough, unspecified (principal); R09.89 Other specified symptoms and signs involving the circulatory and respiratory systems; Z53.21 Procedure and treatment not carried out due to patient leaving prior to being seen by health care provider

== ENCOUNTER 2022-09-23 15:13 | Emergency (ER) | payer MEDICAID ==
[~2022-09-23] VITALS: Ht 172.7 cm; Wt 68.2 kg
[2022-09-23 15:21] VITALS: BP_DIAS 110
[2022-09-23] MEDS ORDERED: amLODIPine 5mg tablet PO ONE (15:45)
[2022-09-23] MEDS ORDERED: AMLO5TAB PO (15:45)
[2022-09-23 16:15] VITALS: BP_SYST 162
== END 2022-09-23 16:25 ==
LOC: ER 15:13
DX: I10 Essential (primary) hypertension (principal); J45.909 Unspecified asthma, uncomplicated; E11.9 Type 2 diabetes mellitus without complications; G89.29 Other chronic pain; M54.9 Dorsalgia, unspecified; E03.9 Hypothyroidism, unspecified; F31.9 Bipolar disorder, unspecified; F20.9 Schizophrenia, unspecified; F12.10 Cannabis abuse, uncomplicated; Z56.0 Unemployment, unspecified; Z88.0 Allergy status to penicillin; Z88.5 Allergy status to narcotic agent; Z79.899 Other long term (current) drug therapy; Z79.1 Long term (current) use of non-steroidal anti-inflammatories (NSAID)
CPT/HCPCS: 82948; 99283

== ENCOUNTER 2022-12-20 09:11 | Emergency (ER) | payer MEDICAID ==
[~2022-12-20] VITALS: Ht 172.7 cm; Wt 78.0 kg
[~2022-12-20 09:11] MED LIST changes: +AMLO5TAB PO
[2022-12-20 09:34] VITALS: BP 146/107
[2022-12-20] MEDS ORDERED: FAMO40TA73 PO (09:49)
== END 2022-12-20 11:01 | disposition home or self-care (01) ==
LOC: ER 09:11
DX: R10.10 Upper abdominal pain, unspecified (principal); I10 Essential (primary) hypertension; J45.909 Unspecified asthma, uncomplicated; E11.9 Type 2 diabetes mellitus without complications; G89.29 Other chronic pain; F31.9 Bipolar disorder, unspecified; F20.9 Schizophrenia, unspecified; E11.42 Type 2 diabetes mellitus with diabetic polyneuropathy; F12.90 Cannabis use, unspecified, uncomplicated; Z95.0 Presence of cardiac pacemaker; Z90.89 Acquired absence of other organs; Z72.89 Other problems related to lifestyle; Z59.00 Homelessness unspecified; Z88.0 Allergy status to penicillin; Z88.5 Allergy status to narcotic agent; Z79.899 Other long term (current) drug therapy
CPT/HCPCS: 99283

== ENCOUNTER 2023-06-19 10:19 | Emergency (ER) | payer MEDICAID ==
[~2023-06-19] VITALS: Ht 172.7 cm; Wt 65.1 kg
[~2023-06-19 10:19] MED LIST changes: +FAMO40TA73 PO
[2023-06-19 10:26] VITALS: BP 129/94; PULSE 87; RESP 16; O2SAT 98
--- NOTE | 2023-06-19 17:51 | NUR ---
I have reviewed and agree with all interventions, assessments performed and documented by Leticia Ayala LVN
[2023-06-19 18:15] VITALS: TEMP 97.3
== END 2023-06-19 18:16 | disposition home or self-care (01) ==
LOC: ER 10:20
DX: B34.9 Viral infection, unspecified (principal); Z20.822 Contact with and (suspected) exposure to COVID-19
CPT/HCPCS: 36415; 71046; 87502; 87503; 87811; 99284

== ENCOUNTER 2024-03-05 07:57 | Emergency (ER) | payer MEDICAID ==
[~2024-03-05] VITALS: Ht 172.7 cm; Wt 75.0 kg
[2024-03-05 10:40] LABS: STREP A SCREEN NEGATIVE (Neg)
[2024-03-05] MEDS: dexamethasone sod phosphate 10mg/ml inj IM STA (11:16)
[2024-03-05] MEDS: diphenhydrAMINE 25 MG/10 ML UD oral solution PO ONE (11:16)
[2024-03-05 11:18] VITALS: BP 142/97; PULSE 83; RESP 16; O2SAT 99
[2024-03-05 11:59] VITALS: TEMP 97.3
== END 2024-03-05 11:40 | disposition home or self-care (01) ==
LOC: ER 07:57
DX: J02.8 Acute pharyngitis due to other specified organisms (principal); G62.9 Polyneuropathy, unspecified; J40 Bronchitis, not specified as acute or chronic; G89.29 Other chronic pain; M54.9 Dorsalgia, unspecified; F32.A Depression, unspecified; F12.90 Cannabis use, unspecified, uncomplicated; Z88.0 Allergy status to penicillin; Z88.5 Allergy status to narcotic agent; Z79.899 Other long term (current) drug therapy; Z79.1 Long term (current) use of non-steroidal anti-inflammatories (NSAID); Z79.2 Long term (current) use of antibiotics
CPT/HCPCS: 87081; 87880; 96372; 99283; J1100; Q0163

== ENCOUNTER 2024-03-09 23:47 | Emergency (ER) | payer MEDICAID ==
[~2024-03-09] VITALS: Ht 172.7 cm; Wt 75.0 kg
[2024-03-10 00:48] VITALS: BP 149/104; PULSE 85; O2SAT 99
[2024-03-10 01:28] VITALS: RESP 18
[2024-03-10] MEDS: HYDROcodone/acetaminophen 5mg/325mg tablet PO ONE (01:28)
[2024-03-10] MEDS: ibuprofen tablet 400 MG TABLET PO ONE (01:28)
[2024-03-10] MEDS: predniSONE 20 mg tablet PO ONE (01:28)
[2024-03-10] MEDS ORDERED: ACET-2006 PO (01:44)
[2024-03-10] MEDS ORDERED: IBUP-24 PO (01:44)
[2024-03-10 01:49] VITALS: TEMP 97.3
== END 2024-03-10 01:59 | disposition home or self-care (01) ==
LOC: ER 23:47
DX: S90.822A Blister (nonthermal), left foot, initial encounter (principal); M79.672 Pain in left foot; J45.909 Unspecified asthma, uncomplicated; G89.29 Other chronic pain; M54.9 Dorsalgia, unspecified; F32.A Depression, unspecified; F12.90 Cannabis use, unspecified, uncomplicated; Z88.5 Allergy status to narcotic agent; Z88.0 Allergy status to penicillin; Z79.899 Other long term (current) drug therapy; Z79.1 Long term (current) use of non-steroidal anti-inflammatories (NSAID); X58.XXXA Exposure to other specified factors, initial encounter; Y93.89 Activity, other specified; Y92.89 Other specified places as the place of occurrence of the external cause; Y99.8 Other external cause status
CPT/HCPCS: 73630; 99284; J7512

== ENCOUNTER 2024-03-23 09:36 | Emergency (ER) | payer MEDICAID ==
[~2024-03-23] VITALS: Ht 172.7 cm; Wt 72.0 kg
[~2024-03-23 09:36] MED LIST changes: +IBUP-24 PO
--- NOTE | 2024-03-23 09:46 | NUR ---
ATTEMPT TO TRIAGE X1 AT 0935 (IN BATHROOM) ATTEMPT TO TRIAGE X2 AT 0946 (IN BATHROOM)
[2024-03-23 09:51] VITALS: BP 135/99; PULSE 72; RESP 16; TEMP 97.3; O2SAT 99
== END 2024-03-23 11:15 | disposition left against medical advice (07) ==
LOC: ER 09:36
DX: M79.602 Pain in left arm (principal); Z53.21 Procedure and treatment not carried out due to patient leaving prior to being seen by health care provider

== ENCOUNTER 2024-04-01 00:14 | Emergency (ER) | payer MEDICAID ==
[~2024-04-01] VITALS: Ht 172.7 cm; Wt 65.4 kg
[2024-04-01 00:57] VITALS: PULSE 84; RESP 18; O2SAT 98
[2024-04-01 00:57] LABS: BASOPHILS # (AUTO) 0.1 X10'3 (0-0.2); EOSINOPHILS # (AUTO) 0.2 X10'3 (0-0.9); EOSINOPHILS % (AUTO) 3.6 % (0-6); HEMATOCRIT 37.8 % (42.0-52.0); HEMOGLOBIN 12.8 g/dl (14.0-17.9); LYMPHOCYTES # (AUTO) 2.5 X10'3 (1.1-4.8); LYMPHOCYTES % (AUTO) 38.4 % (21-51); MEAN CORPUSCULAR HEMOGLOBIN 32.6 PG (27.0-31.0); MEAN CORPUSCULAR HGB CONC 33.9 g/dL (33.0-36.5); MEAN CORPUSCULAR VOLUME 96.2 FL (78-98); MEAN PLATELET VOLUME 8.4 FL (7.4-10.4); MONOCYTES # (AUTO) 0.4 X10'3 (0-0.9); MONOCYTES % (AUTO) 5.7 % (2-12); NEUTROPHILS # (AUTO) 3.3 X10'3 (1.8-7.7); NEUTROPHILS % (AUTO) 51.3 % (42-75); PLATELET COUNT 310 X10'3 (140-440); RED BLOOD COUNT 3.93 X10'6 (4.70-6.10); RED CELL DISTRIBUTION WIDTH 14.2 % (11.5-14.5); WHITE BLOOD COUNT 6.5 X10'3 (4.5-11.0)
[2024-04-01] MEDS: ipratropium/albuterol 3ml nebule NEB ONE (00:57)
[2024-04-01 01:04] VITALS: PULSE 84; RESP 18; O2SAT 100
[2024-04-01 01:16] LABS: ALBUMIN 3.6 G/DL (3.4-5.0); ANION GAP 9 (8-16); BLOOD UREA NITROGEN 12 MG/DL (7-18); BUN/CREATININE RATIO 8.8 (10.0-20.0); CALCIUM 8.9 MG/DL (8.5-10.1); CHLORIDE 108 MMOL/L (99-107); CREATININE 1.36 MG/DL (0.60-1.10); GLUCOSE 111 MG/DL (70-104); POTASSIUM 3.3 MMOL/L (3.5-5.1); PRO BRAIN NATRIURETIC PEPTIDE 35 PG/ML (0-125); SODIUM 145 MMOL/L (135-145); eCRCL 66 ML/MIN; eGFR 70 ML/MIN
[2024-04-01] MEDS ORDERED: PRED20TA PO (01:28)
[2024-04-01] MEDS ORDERED: ALBU18HF2 INH (01:28)
[2024-04-01 02:21] VITALS: BP 125/77; PULSE 86; RESP 16; TEMP 98.6; O2SAT 100
== END 2024-04-01 05:27 | disposition home or self-care (01) ==
LOC: ER 00:15
DX: J40 Bronchitis, not specified as acute or chronic (principal); F17.210 Nicotine dependence, cigarettes, uncomplicated; F12.90 Cannabis use, unspecified, uncomplicated; G89.29 Other chronic pain; M54.9 Dorsalgia, unspecified; F32.A Depression, unspecified; F20.9 Schizophrenia, unspecified; Z88.0 Allergy status to penicillin; Z88.8 Allergy status to other drugs, medicaments and biological substances; Z79.899 Other long term (current) drug therapy; Z79.2 Long term (current) use of antibiotics; Z79.1 Long term (current) use of non-steroidal anti-inflammatories (NSAID); Z79.52 Long term (current) use of systemic steroids; Z59.00 Homelessness unspecified; Z72.89 Other problems related to lifestyle; Z98.890 Other specified postprocedural states; Z20.822 Contact with and (suspected) exposure to COVID-19
CPT/HCPCS: 36415; 71045; 80048; 83880; 84484; 85025; 87811; 93005; 94640; 99285

== ENCOUNTER 2024-04-09 10:23 | Emergency (ER) | payer MEDICAID ==
[~2024-04-09] VITALS: Ht 172.7 cm; Wt 65.8 kg
[~2024-04-09 10:23] MED LIST changes: +ALBU18HF2 INH; +PRED20TA PO
[2024-04-09 10:35] VITALS: BP 146/77; PULSE 80; RESP 18; TEMP 97.9; O2SAT 100
== END 2024-04-09 12:04 | disposition left against medical advice (07) ==
LOC: ER 10:24
DX: Z95.0 Presence of cardiac pacemaker (principal); Z53.21 Procedure and treatment not carried out due to patient leaving prior to being seen by health care provider
CPT/HCPCS: 71045

== ENCOUNTER 2024-04-09 12:56 | Emergency (ER) | payer MEDICAID ==
[~2024-04-09] VITALS: Ht 172.7 cm; Wt 65.8 kg
[2024-04-09 13:00] VITALS: BP 146/77; PULSE 80; O2SAT 100
[2024-04-09 13:55] VITALS: RESP 16
[2024-04-09] MEDS: dexamethasone sod phosphate 10mg/ml inj IM STA (13:55)
[2024-04-09] MEDS: ketorolac trometh 30MG/ML vial 30 MG/ML VIAL IM ONE (13:55)
[2024-04-09 14:04] VITALS: TEMP 97.9
== END 2024-04-09 14:07 | disposition home or self-care (01) ==
LOC: ER 12:56
DX: R07.9 Chest pain, unspecified (principal); J45.909 Unspecified asthma, uncomplicated; G89.29 Other chronic pain; M54.9 Dorsalgia, unspecified; F32.A Depression, unspecified; F20.9 Schizophrenia, unspecified; E07.9 Disorder of thyroid, unspecified; G62.9 Polyneuropathy, unspecified; F12.90 Cannabis use, unspecified, uncomplicated; Z88.0 Allergy status to penicillin; Z88.8 Allergy status to other drugs, medicaments and biological substances; Z79.899 Other long term (current) drug therapy; Z79.1 Long term (current) use of non-steroidal anti-inflammatories (NSAID); Z79.2 Long term (current) use of antibiotics; Z59.00 Homelessness unspecified; Z72.89 Other problems related to lifestyle; Z98.890 Other specified postprocedural states
CPT/HCPCS: 96372; 99284; J1100; J1885

== ENCOUNTER 2024-04-18 09:20 | Emergency (ER) | payer MEDICAID ==
[~2024-04-18] VITALS: Ht 172.7 cm; Wt 63.5 kg
[2024-04-18 10:55] LABS: BASOPHILS % (AUTO) 0.7 % (0-1); EOSINOPHILS # (AUTO) 0.2 X10'3 (0-0.9); EOSINOPHILS % (AUTO) 3.1 % (0-6); HEMATOCRIT 43.9 % (42.0-52.0); HEMOGLOBIN 14.8 g/dl (14.0-17.9); LYMPHOCYTES # (AUTO) 2.5 X10'3 (1.1-4.8); LYMPHOCYTES % (AUTO) 39.8 % (21-51); MEAN CORPUSCULAR HEMOGLOBIN 32.8 PG (27.0-31.0); MEAN CORPUSCULAR HGB CONC 33.7 g/dL (33.0-36.5); MEAN CORPUSCULAR VOLUME 97.3 FL (78-98); MEAN PLATELET VOLUME 8.6 FL (7.4-10.4); MONOCYTES # (AUTO) 0.6 X10'3 (0-0.9); MONOCYTES % (AUTO) 9.9 % (2-12); NEUTROPHILS % (AUTO) 46.5 % (42-75); PLATELET COUNT 330 X10'3 (140-440); RED BLOOD COUNT 4.51 X10'6 (4.70-6.10); RED CELL DISTRIBUTION WIDTH 14.4 % (11.5-14.5); WHITE BLOOD COUNT 6.4 X10'3 (4.5-11.0)
[2024-04-18 11:16] LABS: ANION GAP 5 (8-16); BLOOD UREA NITROGEN 15 MG/DL (7-18); CALCIUM 9.4 MG/DL (8.5-10.1); CHLORIDE 104 MMOL/L (99-107); GLUCOSE 81 MG/DL (70-104); POTASSIUM 3.8 MMOL/L (3.5-5.1); SODIUM 142 MMOL/L (135-145); THYROID STIMULATING HORMONE 0.88 ulU/ml (0.34-4.50); TOTAL CARBON DIOXIDE 33.1 MMOL/L (24-32); eCRCL 87 ML/MIN; eGFR > 90 ML/MIN
[2024-04-18 11:18] LABS: ETHANOL < 10 MG/DL (<10)
[2024-04-18 11:32] LABS: BILIRUBIN,URINE NEGATIVE (Neg); CLARITY,URINE SLIGHTLY CLOUDY (Clear); COLOR,URINE YELLOW (Yellow); GLUCOSE, URINE NEGATIVE (Neg); KETONES,URINE NEGATIVE (Neg); LEUKOCYTE ESTERASE ,URINE NEGATIVE (Neg); NITRITES, URINE NEGATIVE (Neg); OCCULT BLOOD,URINE NEGATIVE (Neg); PH,URINE 6.5 (4.8-8.0); PROTEIN,URINE NEGATIVE (Neg)
[2024-04-18 11:45] LABS: UA COLLECTION TYPE CLN CATCH MIDSTREAM
[2024-04-18 11:46] LABS: BACTERIA,URINE NONE SEEN /HPF (Neg); MUCUS STRANDS MODERATE /LPF (Neg); SQUAMOUS EPITHELIAL CELL,UR MODERATE /LPF (FEW); WBC,URINE 0-4 /HPF (0-4)
[2024-04-18 11:53] LABS: URINE AMPHETAMINE SCREEN POSITIVE (Neg); URINE BARBITUATE SCREEN NEGATIVE (Neg); URINE BENZODIAZEPINES SCREEN NEGATIVE (Neg); URINE CANNABINOID SCREEN POSITIVE (Neg); URINE COCAINE SCREEN NEGATIVE (Neg); URINE METHADONE SCREEN NEGATIVE (Neg); URINE OPIATE SCREEN NEGATIVE (Neg); URINE PHENCYCLIDINE SCREEN NEGATIVE (Neg)
[2024-04-19 08:00] VITALS: BP 133/94; PULSE 74; RESP 18; TEMP 97.2; O2SAT 99
== END 2024-04-19 10:01 | disposition home or self-care (01) ==
LOC: ER 09:21
DX: F15.959 Other stimulant use, unspecified with stimulant-induced psychotic disorder, unspecified (principal); G89.29 Other chronic pain; M54.9 Dorsalgia, unspecified; J45.909 Unspecified asthma, uncomplicated; E07.9 Disorder of thyroid, unspecified; F32.A Depression, unspecified; F20.9 Schizophrenia, unspecified; F12.90 Cannabis use, unspecified, uncomplicated; Z72.89 Other problems related to lifestyle; Z88.0 Allergy status to penicillin; Z88.5 Allergy status to narcotic agent; Z88.8 Allergy status to other drugs, medicaments and biological substances; Z79.2 Long term (current) use of antibiotics; Z79.1 Long term (current) use of non-steroidal anti-inflammatories (NSAID); Z79.899 Other long term (current) drug therapy; Z79.52 Long term (current) use of systemic steroids; Z59.00 Homelessness unspecified; Z20.822 Contact with and (suspected) exposure to COVID-19
CPT/HCPCS: 36415; 80048; 80305; 80320; 81001; 84443; 85025; 87811; 99284

== ENCOUNTER 2024-06-24 10:11 | Emergency (ER) | payer MEDICAID ==
[~2024-06-24] VITALS: Ht 172.7 cm; Wt 72.5 kg
[~2024-06-24 10:11] MED LIST changes: -PRED20TA PO
[2024-06-24 13:22] VITALS: BP 118/68; PULSE 80; RESP 18; TEMP 98.8; O2SAT 99
== END 2024-06-24 13:23 | disposition home or self-care (01) ==
LOC: ER 10:13
DX: R05.9 Cough, unspecified (principal); R09.81 Nasal congestion; R50.9 Fever, unspecified; J45.909 Unspecified asthma, uncomplicated; F20.9 Schizophrenia, unspecified; F12.90 Cannabis use, unspecified, uncomplicated; F17.210 Nicotine dependence, cigarettes, uncomplicated; Z88.0 Allergy status to penicillin; Z88.5 Allergy status to narcotic agent; Z88.6 Allergy status to analgesic agent; Z59.00 Homelessness unspecified; Z20.822 Contact with and (suspected) exposure to COVID-19
CPT/HCPCS: 36415; 87502; 87503; 87811; 99283

== ENCOUNTER 2024-07-25 05:59 | Emergency (ER) | payer MEDICAID ==
[~2024-07-25] VITALS: Ht 172.7 cm; Wt 72.8 kg
[2024-07-25 06:08] VITALS: TEMP 97.7
[2024-07-25] MEDS ORDERED: NAPR-56 PO (06:58)
[2024-07-25] MEDS: naproxen 500mg tablet PO ONE (07:09)
[2024-07-25] MEDS: TETanus/Pertussis (Acell)/Diphther VAC/PF (Tdap-Adult) 0.5ml syringe IMVAC ONE (07:11)
[2024-07-25 07:19] VITALS: BP 136/95; PULSE 78; RESP 16; O2SAT 97
== END 2024-07-25 07:22 | disposition home or self-care (01) ==
LOC: ER 06:00
DX: S93.402A Sprain of unspecified ligament of left ankle, initial encounter (principal); F31.9 Bipolar disorder, unspecified; J45.909 Unspecified asthma, uncomplicated; F20.9 Schizophrenia, unspecified; F12.90 Cannabis use, unspecified, uncomplicated; G62.9 Polyneuropathy, unspecified; Z88.0 Allergy status to penicillin; Z88.5 Allergy status to narcotic agent; Z98.890 Other specified postprocedural states; V29.888A Rider (driver) (passenger) of other motorcycle injured in other specified transport accidents, initial encounter; Y93.89 Activity, other specified; Y92.89 Other specified places as the place of occurrence of the external cause; Y99.8 Other external cause status
CPT/HCPCS: 73610; 90471; 90715; 99284; A6449

== ENCOUNTER 2024-09-07 07:49 | Emergency (ER) | payer MEDICAID ==
[~2024-09-07] VITALS: Ht 172.7 cm; Wt 72.4 kg
[2024-09-07 09:02] VITALS: BP 154/114; PULSE 85; RESP 18; TEMP 98.4; O2SAT 99
[2024-09-07] MEDS: ketorolac trometh 30MG/ML vial 30 MG/ML VIAL IM ONE (09:02)
== END 2024-09-07 09:04 | disposition home or self-care (01) ==
LOC: ER 07:50
DX: J11.1 Influenza due to unidentified influenza virus with other respiratory manifestations (principal); J45.909 Unspecified asthma, uncomplicated; F20.9 Schizophrenia, unspecified; G89.29 Other chronic pain; M54.9 Dorsalgia, unspecified; E07.9 Disorder of thyroid, unspecified; G62.9 Polyneuropathy, unspecified; F32.A Depression, unspecified; F12.90 Cannabis use, unspecified, uncomplicated; Z88.5 Allergy status to narcotic agent; Z88.0 Allergy status to penicillin; Z79.1 Long term (current) use of non-steroidal anti-inflammatories (NSAID); Z79.899 Other long term (current) drug therapy; Z59.00 Homelessness unspecified; Z72.89 Other problems related to lifestyle; Z20.822 Contact with and (suspected) exposure to COVID-19
CPT/HCPCS: 36415; 87502; 87503; 87811; 99283

== ENCOUNTER 2024-10-08 05:30 | Emergency (ER) | payer MEDICAID ==
[~2024-10-08] VITALS: Ht 172.7 cm; Wt 72.7 kg
[2024-10-08 05:33] VITALS: BP 155/109; PULSE 74; RESP 18; TEMP 98.1; O2SAT 100
[2024-10-08] MEDS ORDERED: AMLO5TAB PO (07:29)
[2024-10-08] MEDS ORDERED: BENZ-38 PO (07:29)
== END 2024-10-08 07:47 | disposition home or self-care (01) ==
LOC: ER 05:30
DX: J06.9 Acute upper respiratory infection, unspecified (principal); I10 Essential (primary) hypertension; F20.9 Schizophrenia, unspecified; J45.909 Unspecified asthma, uncomplicated; F12.90 Cannabis use, unspecified, uncomplicated; Z88.0 Allergy status to penicillin; Z88.5 Allergy status to narcotic agent; Z88.8 Allergy status to other drugs, medicaments and biological substances
CPT/HCPCS: 99283

== ENCOUNTER 2024-10-15 08:45 | Emergency (ER) | payer MEDICAID ==
[~2024-10-15] VITALS: Ht 172.7 cm; Wt 72.9 kg
[~2024-10-15 08:45] MED LIST changes: +BENZ-38 PO
[2024-10-15 08:53] VITALS: BP 132/95; PULSE 79; TEMP 98.1; O2SAT 100
[2024-10-15 09:13] VITALS: RESP 16
[2024-10-15] MEDS: ketorolac trometh 15mg/ml vial 15 MG/ML ML IM ONE (09:13)
[2024-10-15] MEDS ORDERED: NAPR-56 PO (09:24)
== END 2024-10-15 09:45 | disposition home or self-care (01) ==
LOC: ER 08:45
DX: S06.0XAA Concussion with loss of consciousness status unknown, initial encounter (principal); F20.9 Schizophrenia, unspecified; J45.909 Unspecified asthma, uncomplicated; G89.29 Other chronic pain; M54.9 Dorsalgia, unspecified; G62.9 Polyneuropathy, unspecified; F32.A Depression, unspecified; F12.90 Cannabis use, unspecified, uncomplicated; E07.9 Disorder of thyroid, unspecified; Z59.00 Homelessness unspecified; Z88.0 Allergy status to penicillin; Z72.89 Other problems related to lifestyle; Z88.5 Allergy status to narcotic agent; Z79.899 Other long term (current) drug therapy; W18.39XA Other fall on same level, initial encounter; Y93.89 Activity, other specified; Y92.89 Other specified places as the place of occurrence of the external cause; Y99.8 Other external cause status
CPT/HCPCS: 96372; 99283; J1885

== ENCOUNTER 2024-10-18 08:41 | Emergency (ER) | payer MEDICAID ==
[~2024-10-18] VITALS: Ht 172.7 cm; Wt 73.6 kg
[~2024-10-18 08:41] MED LIST changes: +NAPR-56 PO
[2024-10-18] MEDS ORDERED: SUL50S RIGHTEYE (09:09)
[2024-10-18 09:27] VITALS: BP 143/105; PULSE 94; RESP 16; TEMP 98.3; O2SAT 97
== END 2024-10-18 09:30 | disposition home or self-care (01) ==
LOC: ER 08:42
DX: H10.89 Other conjunctivitis (principal); F12.90 Cannabis use, unspecified, uncomplicated; J45.909 Unspecified asthma, uncomplicated; F20.9 Schizophrenia, unspecified; G89.29 Other chronic pain; M54.9 Dorsalgia, unspecified; F32.A Depression, unspecified; G62.9 Polyneuropathy, unspecified; E07.9 Disorder of thyroid, unspecified; F17.210 Nicotine dependence, cigarettes, uncomplicated; Z88.0 Allergy status to penicillin; Z88.5 Allergy status to narcotic agent; Z59.00 Homelessness unspecified; Z79.1 Long term (current) use of non-steroidal anti-inflammatories (NSAID); Z79.899 Other long term (current) drug therapy; Z72.89 Other problems related to lifestyle
CPT/HCPCS: 99283

== ENCOUNTER 2024-10-24 09:46 | Inpatient (IN) | payer MEDICAID ==
[~2024-10-24] VITALS: Ht 172.7 cm; Wt 55.8 kg
[~2024-10-24 09:46] MED LIST changes: +SUL50S RIGHTEYE
[2024-10-24 10:20] LABS: EOSINOPHILS # (AUTO) 0.2 X10'3 (0-0.9); MONOCYTES # (AUTO) 0.4 X10'3 (0-0.9); NEUTROPHILS # (AUTO) 2.9 X10'3 (1.8-7.7); WHITE BLOOD COUNT 5.4 X10'3 (4.5-11.0)
[2024-10-24 10:23] LABS: BASOPHILS % (AUTO) 0.9 % (0-1); EOSINOPHILS % (AUTO) 3.4 % (0-6); HEMATOCRIT 43.9 % (42.0-52.0); HEMOGLOBIN 14.7 g/dl (14.0-17.9); LYMPHOCYTES # (AUTO) 1.8 X10'3 (1.1-4.8); MEAN CORPUSCULAR HEMOGLOBIN 32.5 PG (27.0-31.0); MEAN CORPUSCULAR HGB CONC 33.5 g/dL (33.0-36.5); MEAN CORPUSCULAR VOLUME 97.2 FL (78-98); MEAN PLATELET VOLUME 8.8 FL (7.4-10.4); MONOCYTES % (AUTO) 7.4 % (2-12); NEUTROPHILS % (AUTO) 54.3 % (42-75); PLATELET COUNT 281 X10'3 (140-440); RED BLOOD COUNT 4.51 X10'6 (4.70-6.10); RED CELL DISTRIBUTION WIDTH 14.1 % (11.5-14.5)
[2024-10-24 10:37] LABS: ALANINE AMINOTRANSFERASE 25 U/L (12-78); ALBUMIN 4.2 G/DL (3.4-5.0); ALBUMIN/GLOBULIN RATIO 1.4 (1.1-1.5); ALKALINE PHOSPHATASE 74 IU/L (46-116); ANION GAP 5 (8-16); ASPARTATE AMINO TRANSFERASE 17 U/L (10-37); BILIRUBIN,TOTAL 0.3 MG/DL (0.1-1.0); BLOOD UREA NITROGEN 14 MG/DL (7-18); BUN/CREATININE RATIO 15.1 (10.0-20.0); CALCIUM 8.9 MG/DL (8.5-10.1); CHLORIDE 105 MMOL/L (99-107); CREATININE 0.93 MG/DL (0.60-1.10); GLUCOSE 86 MG/DL (70-104); POTASSIUM 3.9 MMOL/L (3.5-5.1); SODIUM 141 MMOL/L (135-145); TOTAL CARBON DIOXIDE 30.7 MMOL/L (24-32); TOTAL PROTEIN 7.2 G/DL (6.4-8.2); eCRCL 83 ML/MIN; eGFR > 90 ML/MIN
[2024-10-24 10:46] LABS: PRO BRAIN NATRIURETIC PEPTIDE 49 PG/ML (0-125)
[2024-10-24 10:48] LABS: LARGE PLATELETS FEW; PLATELET ESTIMATE NORMAL
[2024-10-24 14:02] LABS: URINE AMPHETAMINE SCREEN NEGATIVE (Neg); URINE BARBITUATE SCREEN NEGATIVE (Neg); URINE BENZODIAZEPINES SCREEN NEGATIVE (Neg); URINE CANNABINOID SCREEN POSITIVE (Neg); URINE COCAINE SCREEN NEGATIVE (Neg); URINE METHADONE SCREEN NEGATIVE (Neg); URINE OPIATE SCREEN NEGATIVE (Neg); URINE PHENCYCLIDINE SCREEN NEGATIVE (Neg)
[2024-10-24] MEDS: aspirin 81mg tab.chew PO ONE (15:44)
[2024-10-24] MEDS ORDERED: ondansetron 4mg rapidly disintigrating tab PO PRN (15:55)
[2024-10-24] MEDS ORDERED: magnesium sulf-water 2g/50mL 50 ML IV PRN (15:55)
[2024-10-24] MEDS ORDERED: ondansetron/PF 4mg/2ml inj IV PRN (15:55)
[2024-10-24] MEDS ORDERED: magnesium sulf-water 4G/100mL 100 ML IV PRN (15:55)
[2024-10-24] MEDS ORDERED: aminophylline 250mg/10ml inj. IV PRN (15:55)
[2024-10-24] MEDS ORDERED: magnesium hydroxide 30ml (MOM) UD suspension PO PRN (15:55)
[2024-10-24] MEDS ORDERED: bisacodyl 10mg suppository rectal RC PRN (15:55)
[2024-10-24] MEDS ORDERED: mag hydrox/Alum hydrox/simeth 30ml oral suspension PO PRN (15:55)
[2024-10-24] MEDS ORDERED: diphenhydrAMINE 25mg capsule PO PRN (15:55)
[2024-10-24] MEDS ORDERED: potassium Cl 40MEQ/1/2NS 520ml 520 ML IV PRN (15:55)
[2024-10-24] MEDS ORDERED: magnesium Cl slow-release 64mg tablet PO PRN (15:55)
[2024-10-24] MEDS ORDERED: metoprolol tartrate 1mg/ml inj IV PRN (15:55)
[2024-10-24] MEDS ORDERED: acetaminophen 650mg rectal suppository RC PRN (15:55)
[2024-10-24] MEDS ORDERED: potassium Cl 20 mEq SR tablet PO PRN ×2 (15:55)
[2024-10-24] MEDS ORDERED: acetaminophen 325mg tablet PO PRN ×2 (15:55)
[2024-10-24] MEDS ORDERED: nitroGLYCERIN 0.4mg SUBLingual tab SL PRN ×2 (15:55)
[2024-10-24] MEDS: normal saline 1000ml 1,000 ML IV SCH (16:15)
[2024-10-24] MEDS: PERFLUTREN PROTEIN-A MICROSPHR (Optison) 0.22 MG/ML 3ML VIAL IV ONE (16:15)
[2024-10-24] MEDS ORDERED: hydrALAZINE 20mg/ml inj. IV PRN (17:15)
[2024-10-24] MEDS ORDERED: aminophylline 500mg/20ml vial IV PRN (17:23)
[2024-10-24] MEDS: hydrALAZINE 20mg/ml inj. IV ONE (17:46)
[2024-10-24] MEDS: chlorthalidone 25mg tablet PO SCH (17:46)
[2024-10-24 18:23] LABS: BILIRUBIN,URINE NEGATIVE (Neg); CLARITY,URINE CLEAR (Clear); COLOR,URINE YELLOW (Yellow); GLUCOSE, URINE NEGATIVE (Neg); KETONES,URINE NEGATIVE (Neg); LEUKOCYTE ESTERASE ,URINE NEGATIVE (Neg); NITRITES, URINE NEGATIVE (Neg); OCCULT BLOOD,URINE NEGATIVE (Neg); PH,URINE 7.5 (4.8-8.0); PROTEIN,URINE NEGATIVE (Neg); UROBILINOGEN,URINE 0.2 E.U/dL (0.2-1.0)
[2024-10-24 18:29] LABS: UA COLLECTION TYPE VOIDED
[2024-10-24 19:07] LABS: APTT 28 SECONDS (22-32); INR 1.1 INR; PROTHROMBIN TIME 10.9 SECONDS (9.0-12.0)
[2024-10-24 19:51] VITALS: BP 124/86; PULSE 81; RESP 18; TEMP 97.7; O2SAT 97
[2024-10-24 20:00] VITALS: RESP 18; O2SAT 96
[2024-10-24] MEDS: docusate sod 100mg capsule PO SCH (20:00)
[2024-10-24] MEDS: heparin, porcine 5000 units/ml vial SQ SCH (20:00)
[2024-10-24] MEDS: K and/or MAG REPLACEMENT MC SCH (20:00)
[2024-10-24 21:00] VITALS: BP 136/96
[2024-10-24] MEDS: metoprolol succinate 25mg (24-HOUR) SR. Tablet PO SCH (21:32)
[2024-10-24 22:00] VITALS: BP 140/90; PULSE 79; RESP 20; TEMP 97.4; O2SAT 97
[2024-10-25] VITALS (12 sets, daily range): BP systolic 116–147; BP diastolic 72–104; PULSE 70–105; RESP 14–24; TEMP 97.1–97.7; O2SAT 95–100
[2024-10-25 06:15] LABS: BASOPHILS # (AUTO) 0.1 X10'3 (0-0.2); EOSINOPHILS # (AUTO) 0.3 X10'3 (0-0.9); EOSINOPHILS % (AUTO) 5.2 % (0-6); HEMATOCRIT 49.6 % (42.0-52.0); HEMOGLOBIN 16.4 g/dl (14.0-17.9); LYMPHOCYTES # (AUTO) 1.8 X10'3 (1.1-4.8); LYMPHOCYTES % (AUTO) 28.8 % (21-51); MEAN CORPUSCULAR HEMOGLOBIN 32.4 PG (27.0-31.0); MEAN CORPUSCULAR VOLUME 98.3 FL (78-98); MEAN PLATELET VOLUME 9.1 FL (7.4-10.4); MONOCYTES # (AUTO) 0.6 X10'3 (0-0.9); MONOCYTES % (AUTO) 9.6 % (2-12); NEUTROPHILS # (AUTO) 3.5 X10'3 (1.8-7.7); NEUTROPHILS % (AUTO) 55.4 % (42-75); PLATELET COUNT 298 X10'3 (140-440); RED BLOOD COUNT 5.05 X10'6 (4.70-6.10); RED CELL DISTRIBUTION WIDTH 14.6 % (11.5-14.5); WHITE BLOOD COUNT 6.3 X10'3 (4.5-11.0)
[2024-10-25 06:31] LABS: ALANINE AMINOTRANSFERASE 22 U/L (12-78); ALBUMIN 4.1 G/DL (3.4-5.0); ALBUMIN/GLOBULIN RATIO 1.2 (1.1-1.5); ALKALINE PHOSPHATASE 71 IU/L (46-116); ANION GAP 7 (8-16); ASPARTATE AMINO TRANSFERASE 20 U/L (10-37); BILIRUBIN,TOTAL 0.7 MG/DL (0.1-1.0); BLOOD UREA NITROGEN 14 MG/DL (7-18); CALCIUM 9.3 MG/DL (8.5-10.1); CHLORIDE 105 MMOL/L (99-107); CHOLESTEROL 258 MG/DL (0-200); CREATININE 1.08 MG/DL (0.60-1.10); FREE T4 (FREE THYROXINE) 1.01 NG/DL (0.73-1.40); GLUCOSE 86 MG/DL (70-104); HDL CHOLESTEROL 87 MG/DL (35-60); LDL CHOLESTEROL 149 MG/DL (50-100); MAGNESIUM 2.2 MG/DL (1.5-2.4); PHOSPHORUS 3.7 MG/DL (2.3-4.5); POTASSIUM 4.4 MMOL/L (3.5-5.1); SODIUM 140 MMOL/L (135-145); THYROID STIMULATING HORMONE 0.85 ulU/ml (0.34-4.50); TOTAL CARBON DIOXIDE 28.2 MMOL/L (24-32); TOTAL PROTEIN 7.5 G/DL (6.4-8.2); TRIGLYCERIDES 52 MG/DL (20-135); eCRCL 71 ML/MIN; eGFR > 90 ML/MIN
[2024-10-25] MEDS: aspirin 81mg, enteric-coated 1 TAB TABLET.DR PO SCH (07:59)
[2024-10-25] MEDS: amLODIPine 5mg tablet PO SCH (08:00)
[2024-10-25] MEDS: regadenoson 0.4mg/5ml syringe IV PRN (09:22)
[2024-10-25] MEDS: atorvastatin 20mg tablet PO SCH (12:20)
[2024-10-25] MEDS: nicotine 21mg patch - 24 hr TD SCH (12:20)
[2024-10-25] MEDS: FLU VACC TS2024-25(6MOS UP)/PF 45 MCG/0.5 ML SYRINGE IMVAC ONE (12:22)
[2024-10-25] MEDS ORDERED: ATOR10TA PO (12:38)
[2024-10-25] MEDS ORDERED: AMLO5TAB16 PO (12:38)
[2024-10-25] MEDS ORDERED: METO-395 PO (12:38)
[2024-10-25] MEDS ORDERED: ASPI-1265 PO (12:38)
== END 2024-10-25 14:32 | disposition home or self-care (01) | DRG 198 ==
LOC: ER 09:47 → ED HOLD 16:02 → PCU 3S 20:00
PROVIDERS: ADMIT Family Medicine; ATTEND Family Medicine
PROC: 4A02XM4 Measurement of Cardiac Total Activity, External Approach (ICD-10-PCS; principal; 2024-10-25)
PROC: 3E033HZ Introduction of Radioactive Substance into Peripheral Vein, Percutaneous Approach (ICD-10-PCS; 2024-10-25)
DX: R07.89 Other chest pain (principal); I20.89 Other forms of angina pectoris; F20.9 Schizophrenia, unspecified; J45.909 Unspecified asthma, uncomplicated; F32.A Depression, unspecified; G62.9 Polyneuropathy, unspecified; Z87.891 Personal history of nicotine dependence; Z88.0 Allergy status to penicillin; Z88.5 Allergy status to narcotic agent; Z79.899 Other long term (current) drug therapy
CPT/HCPCS: 36415; 71045; 78452; 80053; 80061; 80305; 81003; 83036; 83735; 83880; 84100; 84439; 84443; 84484; 85008; 85025; 85610; 85730; 87081; 90686; 93005; 93017; 93306; 99285; A9500; G0378; J0360; J2785; J7030

== ENCOUNTER 2024-11-08 07:18 | Emergency (ER) | payer MEDICAID ==
[~2024-11-08] VITALS: Ht 172.7 cm; Wt 75.9 kg
[~2024-11-08 07:18] MED LIST changes: -AMLO5TAB PO; +AMLO5TAB16 PO; +ASPI-1265 PO; +ATOR10TA PO; -AZIT250T PO; -BENZ-38 PO; -FAMO40TA73 PO; -IBUP-1986 PO; -IBUP-24 PO; +METO-395 PO; -NAPR-56 PO; -OMEP40CA21 PO; -PSEU120T55 PO; -SUL50S RIGHTEYE
[2024-11-08 07:27] VITALS: TEMP 98.1
[2024-11-08] MEDS: ibuprofen tablet 400 MG TABLET PO ONE (08:46)
[2024-11-08] MEDS: acetaminophen 325mg tablet PO ONE (08:46)
[2024-11-08 09:51] VITALS: BP 136/78; PULSE 78; RESP 15; O2SAT 100
== END 2024-11-08 09:53 | disposition home or self-care (01) ==
LOC: ER 07:18
DX: R51.9 Headache, unspecified (principal); I10 Essential (primary) hypertension; J45.909 Unspecified asthma, uncomplicated; F20.9 Schizophrenia, unspecified; G89.29 Other chronic pain; M54.9 Dorsalgia, unspecified; Z88.0 Allergy status to penicillin; Z88.5 Allergy status to narcotic agent; Z79.899 Other long term (current) drug therapy; Z59.00 Homelessness unspecified; F12.90 Cannabis use, unspecified, uncomplicated; Z98.890 Other specified postprocedural states
CPT/HCPCS: 70450; 99284

== ENCOUNTER 2024-12-07 10:36 | Emergency (ER) | payer MEDICAID ==
[~2024-12-07] VITALS: Ht 172.7 cm; Wt 73.2 kg
[~2024-12-07 10:36] MED LIST changes: -ASPI-1265 PO
[2024-12-07 11:03] LABS: EOSINOPHILS # (AUTO) 0.4 X10'3 (0-0.9); LYMPHOCYTES # (AUTO) 2.4 X10'3 (1.1-4.8); MEAN CORPUSCULAR HEMOGLOBIN 32.3 PG (27.0-31.0); MONOCYTES # (AUTO) 0.6 X10'3 (0-0.9); RED CELL DISTRIBUTION WIDTH 14.2 % (11.5-14.5); WHITE BLOOD COUNT 5.8 X10'3 (4.5-11.0)
[2024-12-07 11:05] LABS: BILIRUBIN,URINE NEGATIVE (Neg); CLARITY,URINE CLEAR (Clear); COLOR,URINE YELLOW (Yellow); GLUCOSE, URINE NEGATIVE (Neg); KETONES,URINE NEGATIVE (Neg); LEUKOCYTE ESTERASE ,URINE NEGATIVE (Neg); NITRITES, URINE NEGATIVE (Neg); OCCULT BLOOD,URINE NEGATIVE (Neg); PROTEIN,URINE NEGATIVE (Neg); UROBILINOGEN,URINE 0.2 E.U/dL (0.2-1.0)
[2024-12-07 11:05] LABS: BASOPHILS % (AUTO) 0.9 % (0-1); EOSINOPHILS % (AUTO) 6.5 % (0-6); HEMATOCRIT 47.1 % (42.0-52.0); LYMPHOCYTES % (AUTO) 41.1 % (21-51); MEAN CORPUSCULAR VOLUME 94.8 FL (78-98); MEAN PLATELET VOLUME 9.4 FL (7.4-10.4); MONOCYTES % (AUTO) 9.7 % (2-12); NEUTROPHILS # (AUTO) 2.4 X10'3 (1.8-7.7); NEUTROPHILS % (AUTO) 41.8 % (42-75); PLATELET COUNT 268 X10'3 (140-440); RED BLOOD COUNT 4.97 X10'6 (4.70-6.10)
[2024-12-07 11:06] LABS: UA COLLECTION TYPE CLN CATCH MIDSTREAM
[2024-12-07 11:22] LABS: ALANINE AMINOTRANSFERASE 33 U/L (12-78); ALBUMIN/GLOBULIN RATIO 1.1 (1.1-1.5); ALKALINE PHOSPHATASE 79 IU/L (46-116); ANION GAP 8 (8-16); ASPARTATE AMINO TRANSFERASE 24 U/L (10-37); BILIRUBIN,TOTAL 0.5 MG/DL (0.1-1.0); BLOOD UREA NITROGEN 21 MG/DL (7-18); BUN/CREATININE RATIO 21.4 (10.0-20.0); CALCIUM 8.9 MG/DL (8.5-10.1); CHLORIDE 105 MMOL/L (99-107); CREATININE 0.98 MG/DL (0.60-1.10); GLUCOSE 126 MG/DL (70-104); LIPASE 30 U/L (16-77); POTASSIUM 4.1 MMOL/L (3.5-5.1); SODIUM 139 MMOL/L (135-145); TOTAL CARBON DIOXIDE 26.5 MMOL/L (24-32); TOTAL PROTEIN 7.7 G/DL (6.4-8.2); eCRCL 96 ML/MIN; eGFR > 90 ML/MIN
--- NOTE | 2024-12-07 12:24 | Physician Documentation ---
History of Present Illness Chief Complaint: Abdominal Pain Stated Complaint: ABDOMINAL PAIN Time Seen by MD: 12:22 Primary Medical Doctor: NONE HPI Patient presenting for abdominal pain nausea and vomiting. 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 He currently is asymptomatic in his requesting a work note for Monday Medication Reconciliation Allergies: Coded Allergies: Penicillins (Verified Allergy, Unknown, 10/08/24) codeine (Verified Allergy, Unknown, 10/08/24) morphine (Verified Allergy, Unknown, 10/08/24) Scheduled Amlodipine Besylate (Amlodipine Besylate), 1 TAB PO DAILY Atorvastatin Calcium (Lipitor), 2 TAB PO DAILY Metoprolol Succinate (Metoprolol Succinate), 25 MG PO DAILY Pantoprazole Sodium (PROTONIX tablet), 1 TAB PO DAILY Sucralfate (Carafate), 1 TAB PO Q6H Scheduled PRN Albuterol Sulfate (Ventolin Hfa), 2 PUFFS INH Q4HPRN PRN for SOB or wheezing Diphenhydramine Hcl (Benadryl), 2 CAP PO Q8HPRN PRN for ITCHING Past Medical History Past Medical History: Peripheral Neuropathy, Asthma, Bronchitis, Diverticuliti s, Thyroid (unspecified), Chronic Back Pain, Cellulitis, *PSYCH*, Bipolar, Depression, Schizophrenia Past Surgical History: other Other Past Surgical History: Thyroid removal Patient History: FH: diabetes mellitus FATHER FH: hypertension MOTHER Other Past Family History: NONCONTRIBUTORY Alcohol Use: Occasionally Drug Use: marijuana Lives with: Other Lives In: Homeless Occupation: disabled Physical Exam Vital Signs: Temperature: 97.9, Source: Oral, Heart Rate: 82, Respiratory Rate: 18, BP: 114/88, Pulse Oximetry: 98, Weight: 73.200 Physical Exam Well-appearing no distress Abdomen is soft nontender Neuro awake alert oriented Progress Progress Note Labs independently interpreted shows no leukocytosis normal renal function normal hemoglobin Results/Orders Reviewed/noted all lab results: Yes Results/Orders Completed Orders - LUCIA PORTILLO MD Urinalysis, Cult If Indicated (12/07/24 10:44) Cbc/Diff (12/07/24 10:44) BMP (12/07/24 10:44) Lipase (12/07/24 10:44) CMP (12/07/24 10:44) Vital Signs 12/07/24 10:40 Temp 97.9 Pulse 82 Resp 18 B/P (MAP) 114/88 Pulse Ox 98 Laboratory Tests Test 12/07/24 10:45 12/07/24 10:56 Urine Specimen Description Cln catch midstream Urine Color Yellow Urine Clarity Clear Urine pH 6.0 Urine Specific [place] 1.020 Urine Protein Negative Urine Glucose (UA) Negative Urine Ketones Negative Urine Occult Blood Negative Urine Nitrite Negative Urine Bilirubin Negative Urine Urobilinogen 0.2 Urine Leukocyte Esterase Negative Urine Culture Indicated Not ind Volume Urine Centrifuged 10 ml Urine Comment White Blood Count 5.8 Red Blood Count 4.97 Hemoglobin 16.0 Hematocrit 47.1 Mean Corpuscular Volume 94.8 Mean Corpuscular Hemoglobin 32.3 H Mean Corpuscular Hemoglobin Concent 34.0 Red Cell Distribution Width 14.2 Platelet Count 268 Mean Platelet Volume 9.4 Neutrophils (%) (Auto) 41.8 L Lymphocytes (%) (Auto) 41.1 Monocytes (%) (Auto) 9.7 Eosinophils (%) (Auto) 6.5 H Basophils (%) (Auto) 0.9 Neutrophils # (Auto) 2.4 Lymphocytes # (Auto) 2.4 Monocytes # (Auto) 0.6 Eosinophils # (Auto) 0.4 Basophils # (Auto) 0.0 CBC Comment Sodium Level 139 Potassium Level 4.1 Chloride Level 105 Carbon Dioxide Level 26.5 Anion Gap 8 Blood Urea Nitrogen 21 H Creatinine 0.98 Estimated GFR/1.73 m2 > 90 BUN/Creatinine Ratio 21.4 H Glucose Level 126 H Calcium Level 8.9 Total Bilirubin 0.5 Aspartate Amino Transf (AST/SGOT) 24 Alanine Aminotransferase (ALT/SGPT) 33 Alkaline Phosphatase 79 Total Protein 7.7 Albumin 4.0 Globulin 3.7 Albumin/Globulin Ratio 1.1 Lipase 30 Chemistry Comments Medical Decision Making Additional Comments Appendicitis, bowel obstruction, electrolyte abnormality, heat cramp Departure Disposition: 01 HOME / SELF CARE / HOMELESS Impression: Primary Impression: Heat cramp Qualified Codes: T67.2XXA - Heat cramp, initial encounter Additional Instructions: He cramps are caused by over exertion and loss of electrolytes. Continue to drink plenty of Gatorade or other electrolyte containing solutions get plenty of rest take breaks during the day while working and you may return to full capacity on Monday Referrals: NO PRIMARY CARE PROVIDER (PCP) Signature Scribe Signature: na Attestation: LUCIA Campbell MD December 07, 2024 12:24
[2024-12-07 12:34] VITALS: BP 132/83; PULSE 71; RESP 16; TEMP 97.9; O2SAT 97
== END 2024-12-07 12:32 | disposition home or self-care (01) ==
LOC: ER 10:36
DX: T67.2XXA Heat cramp, initial encounter (principal); F20.9 Schizophrenia, unspecified; J45.909 Unspecified asthma, uncomplicated; G62.9 Polyneuropathy, unspecified; F31.9 Bipolar disorder, unspecified; F12.90 Cannabis use, unspecified, uncomplicated; Z88.0 Allergy status to penicillin; Z88.5 Allergy status to narcotic agent; Z79.899 Other long term (current) drug therapy; Z72.89 Other problems related to lifestyle; Z59.00 Homelessness unspecified; X58.XXXA Exposure to other specified factors, initial encounter; Y93.89 Activity, other specified; Y92.89 Other specified places as the place of occurrence of the external cause; Y99.8 Other external cause status
CPT/HCPCS: 80053; 81003; 83690; 85025; 99283

== ENCOUNTER 2024-12-10 08:39 | Emergency (ER) | payer MEDICAID ==
[~2024-12-10] VITALS: Ht 172.7 cm; Wt 74.4 kg
--- NOTE | 2024-12-10 08:52 | ELECTROCARDIOGRAPH REPORT ---
[facility] Test Date: 2024-12-10 Test Time: 08:44:21 Pat Name: SARAH MENDOZA Department: EMERGENCY ROOM Room: Gender: M Stockfeed Miller: pm : 1980 Requested By: LUCIA SANTIAGO Order Number: [id number] Reading MD: Dr. Jermaine Tenorio Measurements Intervals [place] Rate: 90 P: 61 PA: 137 QRS: 45 QRSD: 83 T: -23 QT: 355 QTc: 435 Interpretive Statements Sinus rhythm Probable left atrial enlargement Nonspecific T abnormalities, inferior leads Electronically Signed On 12-11-2024 17:55:[address] Jermaine Tenorio Please click the below link to view image of tracing.
--- NOTE | 2024-12-10 09:20 | RADIOLOGY REPORT ---
CHEST RADIOGRAPH Indication: CP Technique: Single frontal view of the chest was obtained COMPARISON: DI CHEST,SINGLE VIEW on DOS: 10/24/24, DI CHEST,SINGLE VIEW on DOS: 04/09/24, DI CHEST,SINGL E VIEW on DOS: 04/01/24, CHEST,SINGLE VIEW on DOS: 07/08/22, CHEST,SINGLE VIEW on DOS: 12/25/21 FINDINGS: Lines and Tubes: None Lungs: Clear Pleura: No effusion. No pneumothorax. Cardiomediastinal contours: Unremarkable Bones: Unremarkable IMPRESSION: No acute disease.
[2024-12-10] MEDS ORDERED: HYDR-3686 (09:25)
[2024-12-10] MEDS ORDERED: PALI3TAB5 PO (09:25)
--- NOTE | 2024-12-10 09:37 | Physician Documentation ---
History of Present Illness ~ Chief Complaint: Chest Wall Pain Stated Complaint: HEART PAIN Time Seen by MD: 09:05 Primary Medical Doctor: NONE Mode of Arrival: POV HPI This is a 43-year-old male who presents with approximately one-week of left lower anterior chest wall pain worse with coughing and deep breathing, patient reports that began coughing yesterday after dust exposure at work which is exacerbated this pain. Patient reports that he is a smoker. Patient reports no fever or shortness of breath. Patient reports no other symptoms or concerns. Medication Reconciliation Allergies: Coded Allergies: Penicillins (Verified Allergy, Unknown, 10/08/24) codeine (Verified Allergy, Unknown, 10/08/24) morphine (Verified Allergy, Unknown, 10/08/24) Scheduled Amlodipine Besylate (Amlodipine Besylate), 1 TAB PO DAILY Atorvastatin Calcium (Lipitor), 2 TAB PO DAILY Benzonatate* (Benzonatate*), 1 CAP PO Q8H Ibuprofen (Ibuprofen), 1 TAB PO Q8H Metoprolol Succinate (Metoprolol Succinate), 25 MG PO DAILY Paliperidone (Paliperidone ER), 1 TAB PO HS, (Reported) Pantoprazole Sodium (PROTONIX tablet), 1 TAB PO DAILY Sucralfate (Carafate), 1 TAB PO Q6H Scheduled PRN Albuterol Sulfate (Ventolin Hfa), 2 PUFFS INH Q4HPRN PRN for SOB or wheezing Diphenhydramine Hcl (Benadryl), 2 CAP PO Q8HPRN PRN for ITCHING Miscellaneous Medications Hydroxyzine Hcl* (Atarax*), (Reported) Past Medical History Past Medical History: Peripheral Neuropathy, Asthma, Bronchitis, Diverticulitis, Thyroid (unspecified), Chronic Back Pain, Cellulitis, *PSYCH*, Bipolar, Depression, Schizophrenia Past Surgical History: other Other Past Surgical History: Thyroid removal Patient History: FH: diabetes mellitus FATHER FH: hypertension MOTHER Other Past Family History: NONCONTRIBUTORY Alcohol Use: Occasionally Drug Use: marijuana Lives with: Other Lives In: Homeless Occupation: disabled Review of Systems ROS Left chest wall pain as stated above in the HPI, otherwise all systems are reviewed and negative. Physical Exam Vital Signs: Temperature: 99.2, Source: Oral, Heart Rate: 98, Respiratory Rate: 21, BP: 129/81, Pulse Oximetry: 96, Weight: 74.400 Oxygen Flow Rate: 0 Physical Exam VITALS: Reviewed and as above. GENERAL: Alert, nontoxic appearing, no apparent distress. RESPIRATORY: No increased work of breathing, no respiratory distress, speaking in full clear sentences, clear lung sounds in all braun CHEST: Point tenderness to left anterior lower chest wall CV: Regular rate and rhythm no murmur BACK: No tenderness to palpation, no CVA tenderness Progress Results/Orders Results/Orders Completed Orders - BARRY PEÑALOZA [employer] Ketorolac Trometh 15mg/Ml Vial (Toradol (12/10/24 09:40) Hs Troponin I W Calculations (12/10/24 09:54) Cbc/Diff (12/10/24 09:54) BMP (12/10/24 09:54) Vital Signs 12/10/24 12/10/24 12/10/24 12/10/24 08:49 09:00 09:15 09:15 Temp 99.2 Pulse 98 87 91 Resp 16 17 16 B/P (MAP) 129/81 132/82 (99) 126/90 (102) Pulse Ox 99 97 96 97 O2 Delivery Room Air* O2 Flow Rate 0 0 0 0 FiO2 N/A 12/10/24 12/10/24 12/10/24 12/10/24 09:15 09:30 09:45 10:00 Pulse 90 90 101 Resp 21 19 13 32 B/P (MAP) 126/85 (99) 129/84 (99) 128/84 (99) Pulse Ox 100 96 99 O2 Flow Rate 0 0 0 12/10/24 12/10/24 12/10/24 12/10/24 10:15 10:30 10:36 10:58 Temp 99.5 Pulse 81 78 88 89 Resp 30 10 19 12 B/P (MAP) 128/79 (95) 134/89 (104) 140/93 (109) Pulse Ox 97 97 100 97 O2 Flow Rate 0 0 0 12/10/24 12:01 Pulse 86 Resp 20 B/P (MAP) 132/87 Pulse Ox 97 Laboratory Tests Test 12/10/24 10:00 White Blood Count 7.9 Red Blood Count 4.41 L Hemoglobin 14.5 Hematocrit 42.0 Mean Corpuscular Volume 95.1 Mean Corpuscular Hemoglobin 32.8 H Mean Corpuscular Hemoglobin Concent 34.5 Red Cell Distribution Width 13.9 Platelet Count 231 Mean Platelet Volume 9.1 Neutrophils (%) (Auto) 78.6 H Lymphocytes (%) (Auto) 6.3 L Monocytes (%) (Auto) 12.7 H Eosinophils (%) (Auto) 2.0 Basophils (%) (Auto) 0.4 Neutrophils # (Auto) 6.2 Lymphocytes # (Auto) 0.5 L Monocytes # (Auto) 1.0 H Eosinophils # (Auto) 0.2 Basophils # (Auto) 0.0 CBC Comment Sodium Level 139 Potassium Level 4.5 Chloride Level 104 Carbon Dioxide Level 28.7 Anion Gap 6 L Blood Urea Nitrogen 14 Creatinine 1.12 H Estimated GFR/1.73 m2 87 BUN/Creatinine Ratio 12.5 Glucose Level 90 Calcium Level 9.3 Troponin I High Sensitivity < 4 L Troponin I High Sens Percent Delta Troponin I Hi Sens Absolute Change Albumin 3.9 Chemistry Comments EKG/XRAY/CT/US/VASC/MRI EKG : Additional Comment EKG at 0844 interpreted by myself as sinus rhythm at a rate of 90, normal axis, T-wave inversions in inferior leads, no ST segment elevation Chest X-Ray : Additional Comments Exam: CHEST,SINGLE VIEW CHEST RADIOGRAPH Indication: CP Technique: Single frontal view of the chest was obtained COMPARISON: DI CHEST,SINGLE VIEW on DOS: 10/24/24, DI CHEST,SINGLE VIEW on DOS: 04/09/24, DI CHEST,SINGLE VIEW on DOS: 04/01/24, CHEST,SINGLE VIEW on DOS: 07/08/22, CHEST,SINGLE VIEW on DOS: 12/25/21 FINDINGS: Lines and Tubes: None Lungs: Clear Pleura: No effusion. No pneumothorax. Cardiomediastinal contours: Unremarkable Bones: Unremarkable IMPRESSION: No acute disease. Electronically Signed by:OMAR KWAN MD Date & Time: 12/10/24917 Dictated by: OMAR KWAN MD Dictation date and time: 12/10/24917 I have reviewed and agree with the radiology report. I have reviewed and interpreted the imaging as: No focal consolidation or pneumothorax, no displaced rib fractures observed Heart Score: Heart Score Response (Comments) Value History Slightly Suspicious 0 EKG Repolarization Disturb 1 Age <45 0 Risk Factors >3 or Hx ASHD 2 Troponin Normal limit 0 Total 3 Medical Decision Making Findings This 43-year-old male with previous history of cardiac disease presented with proximally one-week of left chest wall pain reproducible to palpation and worse with deep breathing and coughing, as patient developed a cough yesterday due to dust exposure work he presented to the emergency department. EKG was obtained and did show T-wave inversions in inferior leads therefore full labs ordered however labs did not demonstrate evidence of elevated troponin and not demonstrate evidence of metabolic or electrolyte abnormality. Chest x-ray did not demonstrate evidence of intrathoracic process including no rib fractures or pneumonia. Remainder of physical exam was benign. It was reassuring patient reported no fever or shortness of breath. Vital signs were stable and pain adequately controlled in the department. Patient is appropriate for outpatient follow up and will be prescribed pain medication for outpatient management of pain. Patient provided return to care precautions which he verbalized understanding of. Differential Dx:Considerations: Include: angina, chest wall pain, cholelit hiasis, esophageal reflux/spasm, herpes zoster, myocardial infarction, pericarditis, pleuritis, pneumonia, pneumothorax Departure Time of Disposition: 11:11 Disposition: 01 HOME / SELF CARE / HOMELESS Impression: Primary Impression: Chest wall pain Additional Impression: Cough Qualified Codes: R05.1 - Acute cough Condition: Improved Discharge Instructions: Chest Wall Pain Additional Instructions: Please use the prescribed ibuprofen starting tomorrow as needed for chest wall pain, you may also use Tylenol as needed as directed by the [id number] packaging for breakthrough pain, if pain is not severe you may try [id number] ibuprofen as directed by the [id number] packaging instead of the high strength ibuprofen prescribed. Please take ibuprofen with food to avoid stomach upset. Please use the prescribed Tessalon Perles for cough that disturbs sleep or other activities, though tried to avoid suppressing your cough as coughing helps clear your lungs decreasing your chance of pneumonia or other lung problems. I recommend stopping smoking. Additionally I recommend wearing a dust mask work in a [employer]ust[employer] environments. Please follow up with your primary care provider in the next few days. Please return to the emergency department for any new or worsening concerning symptoms including worsening pain, chest pain that is different, or shortness of breath. Departure Forms: Excuse form Work or School Excused From: Work Excuse beginning now through the following date: December 13, 2024 Additional Instructions: Please wear a dust mask when working in a [employer] environment Referrals: NO PRIMARY CARE PROVIDER (PCP) Prescriptions Benzonatate* (Benzonatate*) 100 Mg Capsule 1 CAP PO Q8H for cough for 10 Days, #30 CAP Prov: BARRY PEÑALOZA 12/10/24 Ibuprofen (Ibuprofen) 800 Mg Tablet 1 TAB PO Q8H for pain for 10 Days, #30 TAB 0 Refills Prov: BARRY PEÑALOZA 12/10/24 Education Educated: Patient Educated regarding: diagnosis, treatment, prognosis, need for follow up Signature Scribe Signature: No scribe Attestation: The note accurately reflects work and decisions made by me.NALDO Franco 12/10/24 20:30 BARRY PEÑALOZA December 10, 2024 09:37
[2024-12-10 10:09] LABS: BASOPHILS % (AUTO) 0.4 % (0-1); EOSINOPHILS # (AUTO) 0.2 X10'3 (0-0.9); HEMOGLOBIN 14.5 g/dl (14.0-17.9); LYMPHOCYTES # (AUTO) 0.5 X10'3 (1.1-4.8); LYMPHOCYTES % (AUTO) 6.3 % (21-51); MEAN CORPUSCULAR HEMOGLOBIN 32.8 PG (27.0-31.0); MEAN CORPUSCULAR HGB CONC 34.5 g/dL (33.0-36.5); MEAN CORPUSCULAR VOLUME 95.1 FL (78-98); MEAN PLATELET VOLUME 9.1 FL (7.4-10.4); MONOCYTES % (AUTO) 12.7 % (2-12); NEUTROPHILS # (AUTO) 6.2 X10'3 (1.8-7.7); NEUTROPHILS % (AUTO) 78.6 % (42-75); PLATELET COUNT 231 X10'3 (140-440); RED BLOOD COUNT 4.41 X10'6 (4.70-6.10); RED CELL DISTRIBUTION WIDTH 13.9 % (11.5-14.5); WHITE BLOOD COUNT 7.9 X10'3 (4.5-11.0)
[2024-12-10 10:16] LABS: ALBUMIN 3.9 G/DL (3.4-5.0); ANION GAP 6 (8-16); BLOOD UREA NITROGEN 14 MG/DL (7-18); BUN/CREATININE RATIO 12.5 (10.0-20.0); CALCIUM 9.3 MG/DL (8.5-10.1); CHLORIDE 104 MMOL/L (99-107); CREATININE 1.12 MG/DL (0.60-1.10); GLUCOSE 90 MG/DL (70-104); POTASSIUM 4.5 MMOL/L (3.5-5.1); SODIUM 139 MMOL/L (135-145); TOTAL CARBON DIOXIDE 28.7 MMOL/L (24-32); eCRCL 84 ML/MIN; eGFR 87 ML/MIN
[2024-12-10] MEDS: ketorolac trometh 15mg/ml vial 15 MG/ML ML IM ONE (10:56)
[2024-12-10 10:58] VITALS: TEMP 99.5
[2024-12-10] MEDS ORDERED: IBUP-1986 PO (11:08)
[2024-12-10] MEDS ORDERED: BENZ-38 PO (11:08)
[2024-12-10 12:01] VITALS: BP 132/87; PULSE 86; RESP 20; O2SAT 97
== END 2024-12-10 11:30 | disposition home or self-care (01) ==
LOC: ER 08:40
DX: R07.89 Other chest pain (principal); R05.9 Cough, unspecified; F17.200 Nicotine dependence, unspecified, uncomplicated; F20.9 Schizophrenia, unspecified; J45.909 Unspecified asthma, uncomplicated; F12.90 Cannabis use, unspecified, uncomplicated; F31.9 Bipolar disorder, unspecified; G62.9 Polyneuropathy, unspecified; Z88.0 Allergy status to penicillin; Z88.5 Allergy status to narcotic agent; Z79.899 Other long term (current) drug therapy; Z59.00 Homelessness unspecified; Z72.89 Other problems related to lifestyle
CPT/HCPCS: 36415; 71045; 80048; 84484; 85025; 93005; 96372; 99285; J1885

== ENCOUNTER 2024-12-23 20:24 | Emergency (ER) | payer MEDICAID ==
[~2024-12-23] VITALS: Ht 172.7 cm; Wt 68.0 kg
[~2024-12-23 20:24] MED LIST changes: +HYDR-3686; +IBUP-1986 PO; +PALI3TAB5 PO
[2024-12-23 20:37] VITALS: BP 112/76; PULSE 89; RESP 18; TEMP 98.5; O2SAT 98
[2024-12-24] MEDS ORDERED: IBUP-1984 PO (09:23)
[2024-12-24] MEDS ORDERED: BACL10TA2 PO (09:23)
[2024-12-24] MEDS ORDERED: PRED20TA PO (09:23)
[2024-12-24] MEDS ORDERED: LIDO700A32 TD (09:26)
== END 2024-12-24 00:38 | disposition left against medical advice (07) ==
LOC: ER 20:24
DX: M54.50 Low back pain, unspecified (principal); Z53.21 Procedure and treatment not carried out due to patient leaving prior to being seen by health care provider; Z88.0 Allergy status to penicillin; Z88.5 Allergy status to narcotic agent

== ENCOUNTER 2024-12-24 09:07 | Emergency (ER) | payer MEDICAID ==
[~2024-12-24] VITALS: Ht 172.7 cm; Wt 56.9 kg
[2024-12-24 09:11] VITALS: BP 120/77; PULSE 99; O2SAT 98
[2024-12-24] MEDS ORDERED: BACL10TA2 PO (09:23)
[2024-12-24] MEDS ORDERED: IBUP-1984 PO (09:23)
[2024-12-24] MEDS ORDERED: PRED20TA PO (09:23)
--- NOTE | 2024-12-24 09:24 | Physician Documentation ---
History of Present Illness General Chief Complaint: Back Pain Stated Complaint: LOWER BACK PAIN Time Seen by MD: 09:15 Primary Medical Doctor: NONE History of Present Illness Initial Comments 44-year-old male who presents to the emergency department with complaint of lower back pain. 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 No loss of bowel or bladder. Medication Reconciliation Allergies: Coded Allergies: Penicillins (Verified Allergy, Unknown, 10/08/24) codeine (Verified Allergy, Unknown, 10/08/24) morphine (Verified Allergy, Unknown, 10/08/24) Scheduled Amlodipine Besylate (Amlodipine Besylate), 1 TAB PO DAILY Atorvastatin Calcium (Lipitor), 2 TAB PO DAILY Baclofen (Baclofen), 1 TAB PO Q8H Ibuprofen (Ibuprofen), 1 TAB PO Q8H Ibuprofen* (Motrin*), 400 MG PO Q6H Lidocaine (Lidoderm), 1 PATCH TD DAILY Metoprolol Succinate (Metoprolol Succinate), 25 MG PO DAILY Paliperidone (Paliperidone ER), 1 TAB PO HS, (Reported) Pantoprazole Sodium (PROTONIX tablet), 1 TAB PO DAILY Prednisone* (Prednisone*), 3 TAB PO DAILY Sucralfate (Carafate), 1 TAB PO Q6H Scheduled PRN Albuterol Sulfate (Ventolin Hfa), 2 PUFFS INH Q4HPRN PRN for SOB or wheezing Diphenhydramine Hcl (Benadryl), 2 CAP PO Q8HPRN PRN for ITCHING Miscellaneous Medications Hydroxyzine Hcl* (Atarax*), (Reported) Discontinued Medications Benzonatate* (Benzonatate*), 1 CAP PO Q8H Discontinued Reason: Auto Discontinued Past Medical History Past Medical History: Peripheral Neuropathy, Asthma, Bronchitis, Diverticulitis, Thyroid (unspecified), Chronic Back Pain, Cellulitis, *PSYCH*, Bipolar, Depression, Schizophrenia Past Surgical History: other Other Past Surgical History: Thyroid removal Other Past Family History: NONCONTRIBUTORY Smoking: Cigarettes Alcohol Use: Occasionally Drug Use: marijuana Lives with: Other Lives In: Homeless Occupation: disabled Review of Systems All Other Systems at this time: Reviewed and Negative Constitutional: Denies: fever Musc: Reports: back pain Physical Exam Physical Exam Vital Signs: RN Vital Signs have been reviewed: Yes, Temperature: 98.2, Source: Oral, Heart Rate: 99, Respiratory Rate: 15, BP: 120/77, Pulse Oximetry: 98, Weig ht: 56.900 General Appearance: alert, moderate distress Head: normal inspection Face: normal inspection Pupils/EOM/Fundus: PERRLA Neck: full range of motion Respiratory: no respiratory distress Cardiovascular: regular rate, rhythm Gastrointestinal: normal palpation Back: decreased range of motion Extremities: other (Reduced range of motion with flexion and hyperextension. Able to toe walk heel walk.) Neurologic: oriented x4 Motor / Sensory: no motor deficit, no sensory deficit Psychiatric: normal mood/affect Skin: normal color, warm/dry Progress Results/Orders Results/Orders Orders - ANGY SIERRA Lidocaine 5% Patch (Lidoderm 5% Patch) (12/24/24 09:25) Completed Orders - ANGY SIERRA Ketorolac Trometh 30mg/Ml Vial (Toradol (12/24/24 09:25) Medications Received in ER Medications (Trade) Dose Ordered Sig/Nai Route PRN Reason Start Time Stop Time Status Last Admin Dose Admin (Toradol inj. 30mg/ml) 30 mg ONCE ONCE IM 12/24/24 09:25 12/24/24 09:27 DC 12/24/24 09:37 30 MG (Lidoderm 5% Patch) 1 patch ONCE TP 12/24/24 09:25 12/24/24 09:37 1 PATCH Vital Signs 12/24/24 12/24/24 09:11 09:37 Temp 98.2 Pulse 99 Resp 15 16 B/P (MAP) 120/77 Pulse Ox 98 Medical Decision Making Differential Diagnosis Examination history consistent with acute lumbar strain while working. Patient to benefit from Toradol in the emergency department along with Lidoderm patch. Outpatient management to include Lidoderm patches, muscle relaxant and prednisone burst for five days. Discharged from the emergency department grossly neurologically intact without focal neuro deficits. No clinical suspicion for cauda equina syndrome, diskitis or epidural abscess. Safely discharged in the emergency department. Departure Disposition: HOME / SELF CARE / HOMELESS Impression: Primary Impression: Strain of lumbar region Qualified Codes: S39.012A - Strain of muscle, fascia and tendon of lower back, initial encounter Condition: Improved Discharge Instructions: Lumbosacral Strain Additional Instructions: Please begin medications as directed. Follow up with the worker's comp doctor. Return as needed to the emergency department. Thank you for visiting [facility]. Referrals: NO PRIMARY CARE PROVIDER (PCP) Prescriptions Lidocaine (Lidoderm) 5 % Adh..patch 1 PATCH TD DAILY, #10 PATCH Apply 1 patch daily for 12 hours then off for 12 hours May sub 15 grams 4 pct lidocaine cream if patches are cost peohibitive Prov: ANGY SIERRA 12/24/24 Baclofen (Baclofen) 10 Mg Tablet 1 TAB PO Q8H for 10 Days, #30 TAB 0 Refills Prov: ANGY SIERRA 12/24/24 Prednisone* (Prednisone*) 20 Mg Tablet 3 TAB PO DAILY, #15 TAB Prov: ANGY SIERRA 12/24/24 Ibuprofen* (Motrin*) 400 Mg Tablet 400 MG PO Q6H for 10 Days, #30 TAB Prov: ANGY SIERRA 12/24/24 Education Educated: Patient Educated regarding: diagnosis Signature Scribe Signature: . Attestation: ANGY LAWSON Dec 24, 2024 09:24
[2024-12-24] MEDS ORDERED: LIDO700A32 TD (09:26)
[2024-12-24 09:37] VITALS: RESP 16
[2024-12-24] MEDS: ketorolac trometh 30MG/ML vial 30 MG/ML VIAL IM ONE (09:37)
[2024-12-24] MEDS: LIDOcaine 5% patch TP SCH (09:37)
[2024-12-24 09:43] VITALS: TEMP 98.2
== END 2024-12-24 09:44 | disposition home or self-care (01) ==
LOC: ER 09:08
DX: S39.012A Strain of muscle, fascia and tendon of lower back, initial encounter (principal); F20.9 Schizophrenia, unspecified; F12.90 Cannabis use, unspecified, uncomplicated; F31.9 Bipolar disorder, unspecified; G62.9 Polyneuropathy, unspecified; F17.210 Nicotine dependence, cigarettes, uncomplicated; J45.909 Unspecified asthma, uncomplicated; Z88.0 Allergy status to penicillin; Z88.5 Allergy status to narcotic agent; Z59.00 Homelessness unspecified; Z79.899 Other long term (current) drug therapy; Z72.89 Other problems related to lifestyle; X58.XXXA Exposure to other specified factors, initial encounter; Y93.89 Activity, other specified; Y92.89 Other specified places as the place of occurrence of the external cause; Y99.8 Other external cause status
CPT/HCPCS: 96372; 99283; J1885

== ENCOUNTER 2025-01-08 08:52 | Emergency (ER) | payer MEDICAID ==
[~2025-01-08] VITALS: Ht 172.7 cm; Wt 75.4 kg
[~2025-01-08 08:52] MED LIST changes: +BACL10TA2 PO; +LIDO-52 TD; +PRED20TA PO
[2025-01-08 09:05] VITALS: BP 123/83; PULSE 81; O2SAT 99
[2025-01-08] MEDS ORDERED: ketorolac trometh 15mg/ml vial 15 MG/ML ML IM ONE (09:45)
[2025-01-08] MEDS ORDERED: LIDO-52 TOP (09:54)
[2025-01-08] MEDS ORDERED: NAPR-56 PO (09:54)
--- NOTE | 2025-01-08 09:54 | Physician Documentation ---
History of Present Illness ~ Chief Complaint: Back Pain Stated Complaint: LOWER BACK PAIN Time Seen by MD: 09:42 Primary Medical Doctor: NONE HPI 44-YEAR-OLD MALE PRESENTS TO THE ED WITH A COMPLAINT OF THE ONE WEEK OF THE LOWER BACK PAIN. 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 DENIES ANY OTHER RED FLAG SYMPTOMS INCLUDING INCONTINENCE SADDLE ANESTH ESIA OR NUMBNESS OR TINGLING. Medication Reconciliation Allergies: Coded Allergies: Penicillins (Verified Allergy, Unknown, 10/08/24) codeine (Verified Allergy, Unknown, 10/08/24) morphine (Verified Allergy, Unknown, 10/08/24) Scheduled Amlodipine Besylate (Amlodipine Besylate), 1 TAB PO DAILY Atorvastatin Calcium (Lipitor), 2 TAB PO DAILY Baclofen (Baclofen), 1 TAB PO Q8H Ibuprofen (Ibuprofen), 1 TAB PO Q8H Lidocaine (Lidoderm), 1 PATCH TD DAILY Lidocaine (Lidoderm), 1 PATCH TOP DAILY Metoprolol Succinate (Metoprolol Succinate), 25 MG PO DAILY Naproxen (Naproxen), 1 TAB PO Q12H Paliperidone (Paliperidone ER), 1 TAB PO HS, (Reported) Pantoprazole Sodium (PROTONIX tablet), 1 TAB PO DAILY Prednisone* (Prednisone*), 3 TAB PO DAILY Sucralfate (Carafate), 1 TAB PO Q6H Scheduled PRN Albuterol Sulfate (Ventolin Hfa), 2 PUFFS INH Q4HPRN PRN for SOB or wheezing Diphenhydramine Hcl (Benadryl), 2 CAP PO Q8HPRN PRN for ITCHING Miscellaneous Medications Hydroxyzine Hcl* (Atarax*), (Reported) Discontinued Medications Ibuprofen* (Motrin*), 400 MG PO Q6H Discontinued Reason: Auto Discontinued Past Medical History Past Medical History: Peripheral Neuropathy, Asthma, Bronchitis, Diverticulitis, Thyroid (unspecified), Chronic Back Pain, Cellulitis, *PSYCH*, Bipolar, Depression, Schizophrenia Past Surgical History: other Other Past Surgical History: Thyroid removal Patient History: FH: diabetes mellitus FATHER FH: hypertension MOTHER Other Past Family History: NONCONTRIBUTORY Alcohol Use: Occasionally Drug Use: marijuana Lives with: Other Lives In: Homeless Occupation: disabled Review of Systems All Other Systems at this time: Reviewed and Negative ROS As stated above in the HPI, otherwise all systems are reviewed and negative. Physical Exam Physical Exam Vital Signs: Temperature: 98.2, Source: Temporal, Heart Rate: 81, Respiratory Rate: 18, BP: 123/83, Pulse Oximetry: 99, Weight: 75.400 Oxygen Flow Rate: 0 Physical Exam General: Alert, no apparent distress. BACK; TENDER TO LUMBAR REGION Respiratory: Lungs clear, no respiratory distress. Chest: No accessory muscle use. Neurologic: Oriented x4. Psychiatric: Normal mood and affect. Skin: Normal color, warm and dry. No edema, no ecchymosis. Progress Results/Orders Results/Orders Completed Orders - SELWYN OTTO NP Ketorolac Trometh 15mg/Ml Vial (Toradol (01/08/25 09:45) Ketorolac Trometh 30mg/Ml Vial (Toradol (01/08/25 09:50) Vital Signs 01/08/25 01/08/25 01/08/25 09:05 10:06 10:12 Temp 98.2 98.2 Pulse 81 Resp 18 16 B/P (MAP) 123/83 Pulse Ox 99 O2 Flow Rate 0 Medical Decision Making Findings THIS PATIENT PRESENTS WITH THE CLINICAL INDICATION FOR A LUMBAR STRAIN. TREATED WITH TORADOL IN THE EDM AND SENT HIM HOME WITH LIDOCAINE PATCHES IN THE BROTH Differential Dx:Considerations: Include: AAA, Aortic dissection, Appendicitis, Bowel obstruction, Cholelithiasis, Cholangitis, DJD, Fracture, Hepatitis, HNP, Musculoskeletal pain, Pancreatitis, Pyelonephritis, Renal infarction, Strain, Urinary obstruction, Urolithiasis, Urinary tract infection, Other Departure Impression: Primary Impression: Pain Additional Impression: Lumbar sprain Discharge Instructions: Lumbosacral Strain Referrals: NO PRIMARY CARE PROVIDER (PCP) Prescriptions Naproxen (Naproxen) 500 Mg Tablet 1 TAB PO Q12H, #20 TAB Prov: SELWYN OTTO NP 01/08/25 Lidocaine (Lidoderm) 5 % Adh..patch 1 PATCH TOP DAILY for 30 Days, #30 PATCH 0 Refills may wear up to 12 hours Prov: SELWYN OTTO NP 01/08/25 Signature Scribe Signature: x Attestation: Scribed for Selwyn Otto Np by Selwyn Jimenez NP . 01/08/25 18:25 SELWYN OTTO NP Jan 08, 2025 09:54
[2025-01-08 10:06] VITALS: RESP 16
[2025-01-08] MEDS: ketorolac trometh 30MG/ML vial 30 MG/ML VIAL IM ONE (10:06)
[2025-01-08 10:12] VITALS: TEMP 98.2
== END 2025-01-08 10:15 | disposition home or self-care (01) ==
LOC: ER 08:53
DX: S33.5XXA Sprain of ligaments of lumbar spine, initial encounter (principal); J45.909 Unspecified asthma, uncomplicated; F20.9 Schizophrenia, unspecified; F31.9 Bipolar disorder, unspecified; F12.90 Cannabis use, unspecified, uncomplicated; G62.9 Polyneuropathy, unspecified; Z88.0 Allergy status to penicillin; Z88.5 Allergy status to narcotic agent; Z79.899 Other long term (current) drug therapy; Z59.00 Homelessness unspecified; Z72.89 Other problems related to lifestyle; X58.XXXA Exposure to other specified factors, initial encounter; Y93.89 Activity, other specified; Y92.89 Other specified places as the place of occurrence of the external cause; Y99.8 Other external cause status
CPT/HCPCS: 96372; 99283; J1885

== ENCOUNTER 2025-03-08 07:44 | Inpatient (IN) | payer MEDICAID ==
[~2025-03-08] VITALS: Ht 172.7 cm; Wt 72.2 kg
[~2025-03-08 07:44] MED LIST changes: +LIDO-52 TOP; -PRED20TA PO
--- NOTE | 2025-03-08 07:55 | ELECTROCARDIOGRAPH REPORT ---
[facility] Test Date: 2025-03-08 Test Time: 07:49:23 Pat Name: SARAH MENDOZA Department: EMERGENCY ROOM Room: Gender: M Program Project Analyst: LEIDY : 1980 Requested By: AIYANA DIAZ Order Number: [id number] Reading MD: Dr. Aiyana Diaz Measurements Intervals [place] Rate: 94 P: 83 VT: 128 QRS: 72 QRSD: 73 T: -70 QT: 331 QTc: 414 Interpretive Statements Sinus rhythm Biatrial enlargement Left ventricular hypertrophy Abnormal T, consider ischemia, inferior leads ST elevation, consider anterior injury Electronically Signed On 03-08-2025 8:22:[address] Aiyana Diaz Please click the below link to view image of tracing.
[2025-03-08] MEDS ORDERED: RISP-31 PO (08:20)
[2025-03-08] MEDS ORDERED: SERT-432 PO (08:20)
[2025-03-08 08:31] LABS: MEAN PLATELET VOLUME 8.5 FL (7.4-10.4); RED CELL DISTRIBUTION WIDTH 13.7 % (11.5-14.5)
--- NOTE | 2025-03-08 08:32 | RADIOLOGY REPORT ---
CHEST RADIOGRAPH Indication: CP Technique: Single frontal view of the chest was obtained Comparison: DI CHEST,SINGLE VIEW on DOS: 12/10/24, DI CHEST,SINGLE VIEW on DOS: 10/24/24, DI CHEST,SINGL E VIEW on DOS: 04/09/24, DI CHEST,SINGLE VIEW on DOS: 04/01/24, DI CHEST,TWO VIEWS on DOS: 06/19/23 FINDINGS: Lines and Tubes: None Lungs: No focal consolidation. Pleura: No effusion. No pneumothorax. Cardiomediastinal contours: Unremarkable Bones: No acute osseous abnormality. IMPRESSION: No acute cardiopulmonary disease.
[2025-03-08 08:52] LABS: CREATININE 1.10 MG/DL (0.60-1.10); PRO BRAIN NATRIURETIC PEPTIDE < 30 PG/ML (0-125); TOTAL CARBON DIOXIDE 28.4 MMOL/L (24-32); eCRCL 85 ML/MIN; eGFR 89 ML/MIN
--- NOTE | 2025-03-08 10:45 | Physician Documentation ---
History of Present Illness ~ Chief Complaint: Chest Pain Stated Complaint: CHEST PAIN Time Seen by MD: 09:58 OK to notify your PCP?: Yes Primary Medical Doctor: [facility] Source: patient, RN/MD Mode of Arrival: POV Exam Limitations: no limitations HPI This patient states he ran out of his medications is not had him for a day or two. He also had an argument with his roommate and got very stress and then started having chest pressure chest pain heaviness radiating to his jaw which made him feel numb. He did feel a bit dizzy but denies any diaphoresis he complained of shortness of breath. Patient states lately he has been feeling a bit more fatigued specifically with exertion in fact when he came to walk to the ER because of his chest pain his symptoms got much worse with exertion. He does not work he is on disability. He states lately at night he has been having difficulty sleeping. He states he feels short of breath in the morning but denies PND or orthopnea. Patient is otherwise at his baseline health except he has not been able to take his medicines. Patient had a stress test on 10/25/2024 and he was told they were within normal limits. He states on occasion his legs swell but they have not done so recently. EXAM: NM NM ROBBIE SCAN HISTORY: cp, abnormal EKG COMPARISON: None TECHNIQUE: REST STUDY: 8.4 mCi of Technetium 99m-Tetrofosmin. STRESS STUDY: 33 mCi of Technetium 99m-Tetrofosmin. The patient was stressed with regadenoson 0.4 mg IV. Cardiac-gated tomographic images of the heart were obtained in the short and long axis projections. Images were obtained at rest and immediately following stress. Stress and rest images were performed on the same day. FINDINGS: No perfusion defects are identified on the stress or rest images. Wall motion is normal. Left ventricular ejection fraction is calculated at 51% . IMPRESSION: 1. No evidence of old myocardial infarct or stress-induced ischemia. 2. Normal wall motion and low-normal LVEF 51%. Medication Reconciliation Allergies: Coded Allergies: Penicillins (Verified Allergy, Unknown, 10/08/24) codeine (Verified Allergy, Unknown, 10/08/24) morphine (Verified Allergy, Unknown, 10/08/24) Scheduled Amlodipine Besylate (Amlodipine Besylate), 1 TAB PO DAILY Atorvastatin Calcium (Lipitor), 2 TAB PO DAILY Baclofen (Baclofen), 1 TAB PO Q8H Ibuprofen (Ibuprofen), 1 TAB PO Q8H Lidocaine (Lidoderm), 1 PATCH TD DAILY Lidocaine (Lidoderm), 1 PATCH TOP DAILY Metoprolol Succinate (Metoprolol Succinate), 25 MG PO DAILY Paliperidone (Paliperidone ER), 1 TAB PO HS, (Reported) Pantoprazole Sodium (PROTONIX tablet), 1 TAB PO DAILY Risperidone (Risperidone), 1 TAB PO BID, (Reported) Sertraline HCl (Sertraline HCl), 1 TAB PO DAILY, (Reported) Sucralfate (Carafate), 1 TAB PO Q6H Scheduled PRN Albuterol Sulfate (Ventolin Hfa), 2 PUFFS INH Q4HPRN PRN for SOB or wheezing Diphenhydramine Hcl (Benadryl), 2 CAP PO Q8HPRN PRN for ITCHING Miscellaneous Medications Hydroxyzine Hcl* (Atarax*), (Reported) Past Medical History Past Medical History: Peripheral Neuropathy, Asthma, Bronchitis, Diverticulitis, Thyroid (unspecified), Chronic Back Pain, Cellulitis, *PSYCH*, Bipolar, Depression, Schizophrenia Past Surgical History: other Other Past Surgical History: Thyroid removal Patient History: FH: diabetes mellitus FATHER FH: hypertension MOTHER Other Past Family History: NONCONTRIBUTORY Alcohol Use: Occasionally Drug Use: marijuana Lives with: Other Lives In: Homeless Occupation: disabled Review of Systems All Other Systems at this time: Reviewed and Negative Physical Exam Vital Signs: RN Vital Signs have been reviewed: Yes, Temperature: 97.5, Source: Temporal, Heart Rate: 73, Respiratory Rate: 14, BP: 138/104, Pulse Oximetry: 98, Weight: 72.150 Oxygen Flow Rate: 0 Physical Exam General: The patient is well developed, well nourished, nontoxic appearing and is in mild acute distress. Uncomfortable Skin: Colt, warm and dry with no rashes. HEENT: Head was normocephalic and atraumatic. Eyes - pupils equal, round, reactive to light and accommodation. Extraocular movements were intact. Conjunctivae were nonicteric. The mouth and oropharynx were clear with moist mucous membranes. There were no pharyngeal exudates or erythema. Neck: Supple and nontender. There was no jugular venous distention, lymphadenopathy, thyromegaly or masses. Chest: Clear to auscultation bilaterally without wheezes, rales or rhonchi. No accessory muscle use. No dullness to percussion. Heart: Rate regular and rhythmic. S1, S2. No murmurs. Palpation of the chest wall was normal. No rubs or thrills. Abdomen: Soft, nontender and nondistended. Positive bowel sounds. No guarding or rebound. No hepatosplenomegaly or palpable masses. Extremities: No cyanosis, clubbing with positive trace edema. The patient moves all extremities. Pulses were equal and symmetric. Neurologic: Motor sensory grossly intact Psychologic: The patient was oriented to person, place and time. The patient demonstrated appropriate judgement and insight. Progress Progress Note 12:10 p.m. spoke to the resident regarding admission EKG changes and need for stress test or additional testing Results/Orders Reviewed/noted all lab results: Yes Results/Orders Orders - AIYANA TENORIO MD Electrocardiogram (03/08/25 ) Chest,Single View (03/08/25 07:58) Monitor (03/08/25 07:58) Saline Lock (03/08/25 07:58) Oxygen (03/08/25 07:58) Electrocardiogram (03/08/25 07:58) Page Hospitalist (03/08/25 11:31) Fill Out Med Reconciliation (03/08/25 11:31) Completed Orders - AIYANA TENORIO MD Electrocardiogram (03/08/25 ) Chest,Single View (03/08/25 07:58) Cbc/Diff (03/08/25 07:58) BMP (03/08/25 07:58) PBNP (03/08/25 07:58) Hs Troponin I W Calculations (03/08/25 07:58) Hs Troponin I W Calculations (03/08/25 09:58) Hs Troponin I W Calculations (03/08/25 10:58) Pt Inr (03/08/25 11:31) PTT (03/08/25 11:31) Aspirin 81mg Chew Tablet (Aspirin 81mg C (03/08/25 11:45) Nitroglycerin 0.2mg/Hour Patch (Nitro-Du (03/08/25 11:45) Vital Signs 03/08/25 03/08/25 03/08/25 03/08/25 07:53 08:03 08:03 09:12 Temp 97.5 Pulse 97 93 73 Resp 15 13 13 14 B/P (MAP) 151/103 140/106 (117) 138/104 (115) Pulse Ox 98 100 98 O2 Flow Rate 0 0 03/08/25 11:05 Pulse 75 Resp 17 B/P (MAP) 128/96 (107) Pulse Ox 97 O2 Flow Rate 0 Laboratory Tests Test 03/08/25 08:14 03/08/25 09:50 03/08/25 11:14 White Blood Count 6.3 Red Blood Count 5.10 Hemoglobin 16.5 Hematocrit 47.7 Mean Corpuscular Volume 93.5 Mean Corpuscular Hemoglobin 32.4 H Mean Corpuscular Hemoglobin Concent 34.7 Red Cell Distribution Width 13.7 Platelet Count 327 Mean Platelet Volume 8.5 Neutrophils (%) (Auto) 51.9 Lymphocytes (%) (Auto) 34.4 Monocytes (%) (Auto) 7.9 Eosinophils (%) (Auto) 4.2 Basophils (%) (Auto) 1.6 H Neutrophils # (Auto) 3.3 Lymphocytes # (Auto) 2.2 Monocytes # (Auto) 0.5 Eosinophils # (Auto) 0.3 Basophils # (Auto) 0.1 CBC Comment Prothrombin Time 10.9 INR International Normalized Ratio 1.1 Activated Partial Thromboplast Time 28 Coagulation Comments Sodium Level 141 Potassium Level 3.6 Chloride Level 104 Carbon Dioxide Level 28.4 Anion Gap 9 Blood Urea Nitrogen 11 Creatinine 1.10 Estimated GFR/1.73 m2 89 BUN/Creatinine Ratio 10.0 Glucose Level 101 Calcium Level 9.3 Troponin I High Sensitivity 4 5 5 Pro-B-Type Natriuretic Peptide < 30 Albumin 4.2 Chemistry Comments Troponin I High Sens Percent Delta 25 0 Troponin I Hi Sens Absolute Change 1 0 Re-Evaluation Re-Evaluation : Re-Evaluation: Improved Progress Patient was seen and examined. Patient was given reassurance. Patient has not an abnormal EKG with new peaked T-waves in V3 V4. T-wave inversions are unchanged from prior. V6 also has new T-wave inversion. New EKG changes were bit concerning his presentation history was also quite concerning. 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 He did run out of medications he has slight hypertension which may be contributing to some of his symptoms as well is initial presentation blood pressure was 151/103. Patient presenting with PND like complaints as well as increasing fatigue weakness with chest pain radiating to the jaw very concerning. Laboratory work however was reassuring with a normal CBC without anemia or leukocytosis. Chemistry also had negative troponins negative chemistry and a normal proBNP. Nevertheless patient will be admitted for further workup and care. Continuous cardiac nurse interpretation shows normal sinus rhythm heart rate 70s, no ectopy, normal, my interpretation. Pulse oximetry monitor interpretation shows normal oxygenation at 99% room air, normal, my interpretation. EKG/XRAY/CT/US/VASC/MRI EKG : Intepreting Monitor?: Yes Additional Comment Test Date: 2025-03-08 Test Time: 07:49:23 Pat Name: SARAH MENDOZA Department: EMERGENCY ROOM Room: Gender: M Health Data Analyst: LEIDY : 1980 Requested By: AIYANA TENORIO Order Number: [id number] Reading MD: Dr. Aiyana Tenorio Measurements Intervals [place] Rate: 94 P: 83 VA: 128 QRS: 72 QRSD: 73 T: -70 QT: 331 QTc: 414 Interpretive Statements Sinus rhythm Biatrial enlargement Left ventricular hypertrophy Abnormal T, consider ischemia, inferior leads ST elevation, consider anterior injury Electronically Signed On 03-08-2025 8:22:[address] Aiyana eTnorio Please click the below link to view image of tracing. Chest X-Ray : Interpreted By: both Additional Comments CHEST RADIOGRAPH Indication: CP Technique: Single frontal view of the chest was obtained Comparison: DI CHEST,SINGLE VIEW on DOS: 12/10/24, DI CHEST,SINGLE VIEW on DOS: 10/24/24, DI CHEST,SINGLE VIEW on DOS: 04/09/24, DI CHEST,SINGLE VIEW on DOS: 04/01/24, DI CHEST,TWO VIEWS on DOS: 06/19/23 FINDINGS: Lines and Tubes: None Lungs: No focal consolidation. Pleura: No effusion. No pneumothorax. Cardiomediastinal contours: Unremarkable Bones: No acute osseous abnormality. IMPRESSION: No acute cardiopulmonary disease. Heart Score: Heart Score Response (Comments) Value History Highly Suspicious 2 EKG Repolarization Disturb 1 Age <45 0 Risk Factors 1 or 2 risk factors 1 Troponin Normal limit 0 Total 4 Medical Decision Making Additional info obtained from: old records Differential Dx:Considerations: Include: angina, aortic dissection, chest wall pain, cholelithiasis, CHF, costochondritis, esophageal reflux/spasm, gastritis, herpes zoster, myocardial infarction, pericarditis, pleuritis, pancreatitis, pneumonia, pneumothorax, pulmonary embolus, other Departure Disposition: ADMITTED INPATIENT Admitted to Inpatient Unit: yes, to hospitalist Admission Level of Care: PCU with Tele Impression: Primary Impression: Chest pain on exertion Additional Impressions: EKG abnormalities Hypertension, accelerated Medical non-compliance Condition: Fair Referrals: NO PRIMARY CARE PROVIDER (PCP) Education Educated: Patient Educated regarding: diagnosis Signature Scribe Signature: . Attestation: The note accurately reflects work and decisions made by me.Aiyana Tenorio MD 03/08/25 11:39 AIYANA TENORIO MD Mar 08, 2025 10:45
[2025-03-08 11:48] LABS: APTT 28 SECONDS (22-32); INR 1.1 INR
[2025-03-08] MEDS ORDERED: ondansetron/PF 4mg/2ml inj IV PRN (12:40)
[2025-03-08] MEDS ORDERED: magnesium hydroxide 30ml (MOM) UD suspension PO PRN (12:40)
[2025-03-08] MEDS ORDERED: mag hydrox/Alum hydrox/simeth 30ml oral suspension PO PRN (12:40)
[2025-03-08 13:10] VITALS: BP 141/100; PULSE 77; RESP 12; TEMP 96.9; O2SAT 100
[2025-03-08 13:20] LABS: PHOSPHORUS 3.5 MG/DL (2.3-4.5)
[2025-03-08 13:25] LABS: LEUKOCYTE ESTERASE ,URINE NEGATIVE (Neg); NITRITES, URINE NEGATIVE (Neg); OCCULT BLOOD,URINE NEGATIVE (Neg); URINE AMPHETAMINE SCREEN NEGATIVE (Neg); URINE BARBITUATE SCREEN NEGATIVE (Neg); URINE BENZODIAZEPINES SCREEN NEGATIVE (Neg); URINE CANNABINOID SCREEN POSITIVE (Neg); URINE COCAINE SCREEN NEGATIVE (Neg); URINE METHADONE SCREEN NEGATIVE (Neg); URINE OPIATE SCREEN NEGATIVE (Neg); URINE PHENCYCLIDINE SCREEN NEGATIVE (Neg)
--- NOTE | 2025-03-08 13:25 | RADIOLOGY REPORT ---
EXAM: CT CT HEAD INDICATION: NEAR SYNCOPE TECHNIQUE: CT of the head without intravenous contrast. Radiation Dose : 1. Head: CT Dose: CTDI volume is 62 mGy. Dose-length product is 1041 mGy*cm The dose indicators for CT are the volume Computed Tomography (CT) Dose Index (CTDIvol) and the Dose Length Product (DLP), and are measured in units of mGy and mGy-cm, respectively. These indicators are not patient dose, but values generated from the CT scanner acquisition factors. The report includes radiation exposure data for exposures received during this examination. COMPARISON: CT CT HEAD on DOS: 11/08/24 FINDINGS: There is no evidence of acute intracranial hemorrhage, extra-axial collection, mass effect, midline s hift, herniation or hydrocephalus. The ventricles, sulci and cisterns are age appropriate. The winslow-white differentiation is intact. Patchy periventricular and subcortical white matter hypoattenuation is nonspecific but may be related to small vessel ischemic disease. The visualized paranasal sinuses and mastoid air cells are clear. The surrounding soft tissues and osseous structures are unremarkable. IMPRESSION: 1. No acute intracranial abnormality. Radiation optimization: All CT scans at this facility use at least one of these dose optimization aubrey hniques: automated exposure control mA and/or kV adjustment per patient size (includes targeted exam s where dose is matched to clinical indication) or iterative reconstruction.
[2025-03-08 13:36] LABS: UA COLLECTION TYPE CLN CATCH MIDSTREAM
[2025-03-08 13:39] LABS: MUCUS STRANDS FEW /LPF (Neg); SQUAMOUS EPITHELIAL CELL,UR FEW /LPF (FEW)
[2025-03-08 13:40] LABS: FINE GRANULAR CAST 0-3 /LPF (NEGATIVE); HYALINE CASTS 0-3 /LPF (NEGATIVE)
--- NOTE | 2025-03-08 13:40 | RADIOLOGY REPORT ---
Procedure: CT CTA NECK/HEAD HISTORY: left facial numbness, near syncope Comparison Study: CT CT HEAD on DOS: 03/08/25, CT CT HEAD on DOS: 11/08/24 Exam Date:03/08/2025 01:03 PM TECHNIQUE: CTA head without and with intravenous contrast. CTA neck with intravenous contrast. 3D maris Baton postprocessing was performed and images were used for interpretation and reporting. Radiation Dose : CT Dose: CTDI volume is 27.7 mGy. Dose-length product is 1064 mGy*cm FINDINGS: CTA head: There is normal enhancement of the visualized distal internal carotid, anterior and middle cerebral a rteries. There is a normal anterior communicating artery complex. There are bilateral posterior commu nicating arteries. The vertebral, basilar, cerebellar and posterior cerebral arteries are within norm al limits. The early parenchymal enhancement is grossly unremarkable. The visualized intracranial serenity ous structures are grossly unremarkable. CTA neck: The visualized thoracic aortic arch and proximal great vessels are unremarkable. The left common, int ernal and external carotid arteries are within normal limits. The right common, internal and external carotid arteries are within normal limits. The cervical segments of the right and left vertebral art eries are within normal limits. The limited visualized lung apices are clear. The surrounding soft ti ssues and osseous structures are otherwise unremarkable. IMPRESSION: 1. No evidence of hemodynamically significant intracranial stenosis, proximal occlusion or aneurysm. 2. No evidence of hemodynamically significant cervical stenosis or dissection. All CT scans at this medical facility are performed using dose modulation techniques as appropriate t o a performed exam including the following: Automated exposure control was utilized; adjustment of th e MA and/or KV according to patient size; and use of iterative reconstruction technique.
[2025-03-08 14:00] VITALS: RESP 12; O2SAT 98
[2025-03-08] MEDS ORDERED: PERFLUTREN PROTEIN-A MICROSPHR (Optison) 0.22 MG/ML 3ML VIAL IV ONE (14:50)
[2025-03-08 15:00] VITALS: BP 140/95; PULSE 76; RESP 12; TEMP 97.2; O2SAT 98
--- NOTE | 2025-03-08 15:19 | ELECTROCARDIOGRAPH REPORT ---
[facility] Test Date: 2025-03-08 Test Time: 15:18:10 Pat Name: SARAH MENDOZA Department: [facility]S Patient ID: [facility]-[id number] Room: [place] [address] A Gender: M Wetland Scientist: Diamond Colón : 1980 Requested By: ERIN SMITH Order Number: [id number] Reading MD: Dr. Waldo Olvera Measurements Intervals [place] Rate: 78 P: 50 HI: 144 QRS: 57 QRSD: 83 T: 1 QT: 395 QTc: 450 Interpretive Statements Sinus rhythm Borderline T abnormalities, inferior leads Electronically Signed On 03-09-2025 19:41:[address] Waldo Olvera Please click the below link to view image of tracing.
[2025-03-08] MEDS ORDERED: morphine/NS 1 mg/ml 50ml PCA 50 ML IV PRN (15:40)
[2025-03-08] MEDS ORDERED: PCA WASTE DOCUMENTATION 1 MG ML MC SCH (16:20)
[2025-03-08] MEDS: metoprolol succinate 25mg (24-HOUR) SR. Tablet PO STA (16:22)
--- NOTE | 2025-03-08 16:24 | ELECTROCARDIOGRAPH REPORT ---
[facility] Test Date: 2025-03-08 Test Time: 16:22:27 Pat Name: SARAH MENDOZA Department: [facility] 3S Patient ID: [facility]-[id number] Room: [place] [address] A Gender: M Pallet Repairer: Diamond Colón : 1980 Requested By: ERIN SMITH Order Number: [id number] Reading MD: Dr. Waldo Olvera Measurements Intervals [place] Rate: 72 P: 31 DC: 152 QRS: 43 QRSD: 80 T: -3 QT: 392 QTc: 430 Interpretive Statements Sinus rhythm Borderline T abnormalities, inferior leads ST elev, probable normal early repol pattern Electronically Signed On 03-09-2025 19:41:[address] Waldo Olvera Please click the below link to view image of tracing.
[2025-03-08 18:00] VITALS: BP 134/96; PULSE 79; RESP 14; TEMP 97.3; O2SAT 100
--- NOTE | 2025-03-08 18:13 | HISTORY AND PHYSICAL-Residence ---
History & Physical Providers to CC Resident Creating Document: JOSE BENSON GABRIELA, RES ~ History of Present Illness Primary Medical Doctor: [facility] Reason for Admit\Complaint: Chest Pain History of Present Illness 44 years old male patient with a past medical history of Peripheral Neuropathy, Asthma, Bronchitis, Diverticulitis, thyroidectomy, Chronic Back Pain, Cellulitis, Bipolar, Depression, Schizophrenia presented to the ER with chest pain and discomfort. Patient endorses that he had an argument with his roommate and felt stressed and then gradual chest pain started with radiation to his left jaw from today morning aggravated with exertion and mild relief with rest. He also reports mild SOB, fatigue. He states that his legs swell occasionally but they have not done so recently. He denies palpitations, syncope, dizziness, altered level of consciousness, a rthralgias, rash, abdominal pain, nausea, vomiting, diarrhea, constipation. Patient had a stress test on 10/25/2024 and he was told they were within normal limits. Allergies: Coded Allergies: Penicillins (Verified Allergy, Unknown, 10/08/24) codeine (Verified Allergy, Unknown, 10/08/24) morphine (Verified Allergy, Unknown, 10/08/24) Home Medications Home Medications Active Lidoderm (Lidocaine) 5 % Adh..patch 1 Patch TD DAILY Apply 1 patch daily for 12 hours then off for 12 hours May sub 15 grams 4 pct lidocaine cream if patches are cost peohibitive Baclofen 10 Mg Tablet 1 Tab PO Q8H 10 Days Amlodipine Besylate 5 Mg Tablet 1 Tab PO DAILY 30 Days Metoprolol Succinate 25 Mg Tab.sr.24h 25 Mg PO DAILY 30 Days Lipitor (Atorvastatin Calcium) 10 Mg Tablet 2 Tab PO DAILY 30 Days Ventolin Hfa (Albuterol Sulfate) 90 Mcg Hfa.aer.ad 2 Puffs INH Q4HPRN PRN Benadryl (Diphenhydramine Hcl) 25 Mg Capsule 2 Cap PO Q8HPRN PRN 30 Days PROTONIX tablet (Pantoprazole Sodium) 40 Mg Tablet.dr 1 Tab PO DAILY 30 Days Reported Sertraline HCl 25 Mg Tablet 1 Tab PO DAILY Risperidone 1 Mg Tablet 1 Tab PO BID Past Medical History Past Medical History Peripheral Neuropathy, Asthma, Bronchitis, Diverticulitis, thyroidectomy, Chronic Back Pain, Cellulitis, Bipolar, Depression, Schizophrenia Past Surgical History Surgical History Comment Total Thyroidectomy Family History Family History: FH: cancer FATHER, , Cause: Cancer FH: diabetes mellitus FATHER, , Cause: Cancer FH: hypertension MOTHER Past Social History Social History Comment Active smoker, smokes 2-3 cigarettes per day since 20 years, three pack years Alcohol Use: Occasionally Drug Use: marijuana Lives with: Other Lives In: Homeless Occupation: disabled Smoking: Cigarettes Alcohol Use: Occasionally Drug Use: Marijuana Lives with: Other Lives In: Homeless Occupation: disabled ROS All Other Systems: Reviewed and Negative ROS Constitutional: No fever, chills, dizziness, weight gain or loss Eyes: No pain, erythema, discharge, blurring of vision ENT: No sore throat, epistaxis, tinnitus Cardiovascular: Reports chest pain and discomfort, No palpitations, syncope, lower extremity edema, paroxysmal nocturnal dyspnea Respiratory: Reports Shortness of breath and cough, No hemoptysis. Gastrointestinal: No Abdominal pain, nausea,vomiting. Normal appetite. No constipation,diarrhea, hematemesis, melena or fresh blood Musculoskeletal:No chronmic edema. Integumentary: No change in skin, hair, nails. No swelling, bruising, abrasions Neurologic: Reports weakness,No headache, neck pain, numbness or tingling of the extremities, Psychiatric: No delusions, depression, loss of interest in normal activity or change in sleep pattern, hallucinations, suicidal ideations Endocrine: Reports fatigue, weakness. polydipsia, polyuria, change in appetite, heat or cold intolerance, sweating, dry skin Hematological: No bleeding, petechiae, bruising Allergies: No asthma or urticaria Exam Vitals: Vital Signs Date Time Temp Pulse Resp B/P (MAP) Pulse Ox O2 Delivery O2 Flow Rate FiO2 03/08/25 16:23 18 03/08/25 14:01 82 03/08/25 14:00 98 Room Air 03/08/25 13:07 124/80 (95) 0 03/08/25 07:53 97.5 General: Awake , alert and oriented to time,place, person, moderately built, not in distress. HEENT: Atraumatic, normocephalic, PEERLA, anicteric sclera ; pink conjunctiva Neck: Trachea midline. Supple, normal range of motion, no JVD Chest and Respiratory: Point tenderness to left anterior lower chest wall,Chest wall is symmetric and without deformity. Equal breath sounds bilaterally, no tachypnea, wheezing and ronchi are present. Cardiac: S1, S2 heard,Regular rate and rhythm, no murmurs heard. Abdomen: Abdomen symmetric, non-distended, soft,no tenderness, no guarding or rebound tenderness,normal bowel sounds x4 quadrant, normoactive, no hepatosplenomegaly MSK: Range of motion of all extremities are normal. There is no joint pain or joint swelling or joint erythema. There is no muscle pain or tenderness or swelling. Extremities: warm, well-perfused, No cyanosis, clubbing or edema, 2+ pulses felt Neurological: Speech is clear, alert, and oriented x 4. No sensory or motor deficits. Cranial nerves II-XII intact. Skin: Warm and dry Psychiatry: Affect and mood are normal Diagnostic Data Last Recorded Lab Results: 03/08/2514 03/08/25 0814 Diagnostic Data: Laboratory Tests Test 03/08/25 08:14 Prothrombin Time 10.9 SECONDS (9.0-12.0) INR International Normalized Ratio 1.1 INR Activated Partial Thromboplast Time 28 SECONDS (22-32) Coagulation Comments Additional Plan Chest pain Rule out acute coronary syndrome Troponin levels and proBNP are normal EKG showed new T wave inversions on v6 in ER, repeated EKG showed mild ST elevations in V2, V3 leads, ordered repeat EKG after one hour Continue telemetry monitoring Patient has a nitro- patch with a dose of 0.2 mg Metoprolol succinate 50 mg p.o. stat dose was given and continue on metoprolol 25 mg p.o. once daily Continue on home medication atorvastatin 20 mg p.o. once daily Echocardiogram is ordered Hypertension Blood pressures are normal Continue on home medication amlodipine 5 mg p.o. once daily continue on metoprolol 25 mg p.o. once daily History of thyroidectomy Ordered TSH and lipid panel. I spent a total of 17 minutes on reviewing various resuscitative measures/ ACP with the patient at the time of admission. The patient has decided on a full code status Code status: Full GI prophylaxis: Protonix Diet: Regular diet Disposition: A 44 years old male patient admitted for chest pain. On further evaluation showed mild ST elevations and troponin levels are normal. We will continue telemetry monitoring. Jose Benson MD Internal medicine resident, PGY1 Date of Service: Mar 08, 2025 Billing Provider: NYAAN CAMPOS DO Common Visit Codes: 31628-[id number] INP/OBS CARE (HIGH) Secondary Visit Codes: 44465-[id number] CARE PLAN 30 MINUTES JOSE BENSON, RES Mar 08, 2025 18:13 NAYAN CAMPOS DO Mar 08, 2025 19:42
--- NOTE | 2025-03-08 18:52 | ELECTROCARDIOGRAPH REPORT ---
[facility] Test Date: 2025-03-08 Test Time: 18:50:48 Pat Name: SARAH MENDOZA Department: [facility] 3S Room: [place] [address] A Gender: M Shingle Sawyer: : 1980 Requested By: ERIN SMITH Order Number: [id number] Reading MD: Dr. Waldo Olvera Measurements Intervals [place] Rate: 71 P: 63 DE: 155 QRS: 52 QRSD: 80 T: 3 QT: 407 QTc: 443 Interpretive Statements Sinus rhythm Abnormal R-wave progression, early transition Electronically Signed On 03-09-2025 19:41:[address] Waldo Olvera Please click the below link to view image of tracing.
[2025-03-08] MEDS: heparin, porcine 5000 units/ml vial SQ SCH (19:58)
[2025-03-08 20:00] VITALS: RESP 14; O2SAT 100
[2025-03-08] MEDS: docusate sod 100mg capsule PO SCH (20:00)
[2025-03-08] MEDS: PALIPERIDONE 3 MG TAB.ER.24 PO SCH (20:58)
[2025-03-08 22:00] VITALS: BP 106/64; PULSE 77; RESP 13; TEMP 97.9; O2SAT 99
[2025-03-09 02:00] VITALS: BP 100/61; PULSE 69; RESP 18; TEMP 96.9; O2SAT 100
[2025-03-09 06:00] VITALS: BP 145/78; PULSE 76; RESP 18; TEMP 97.1; O2SAT 99
[2025-03-09 06:52] LABS: MEAN PLATELET VOLUME 8.6 FL (7.4-10.4); RED CELL DISTRIBUTION WIDTH 13.8 % (11.5-14.5)
[2025-03-09 07:25] LABS: CHOL/HDL RATIO 3.9 (0.00-4.99); CREATININE 1.13 MG/DL (0.60-1.10); LDL CHOLESTEROL 161 MG/DL (50-100); TOTAL CARBON DIOXIDE 24.3 MMOL/L (24-32); eCRCL 82 ML/MIN; eGFR 86 ML/MIN
[2025-03-09 08:00] VITALS: RESP 16; O2SAT 99
[2025-03-09] MEDS: metoprolol succinate 25mg (24-HOUR) SR. Tablet PO SCH (08:06)
--- NOTE | 2025-03-09 09:57 | PROGRESS NOTE- Residence ---
Progress Note - Resident Providers to CC Resident Creating Document: ERIN SMITH, RES ~ Antibiotic Timeout Antibiotic Ordered?: No Objective Vital Signs Date Time Temp Pulse Resp B/P (MAP) Pulse Ox O2 Delivery O2 Flow Rate FiO2 03/09/25 08:07 86 03/09/25 06:00 97.1 18 145/78 (100) 99 Room Air 03/08/25 13:07 0 Result Diagram: 03/09/25 0622 03/09/25 0622 Coagulation Studies Laboratory Tests Test 03/08/25 08:14 Prothrombin Time 10.9 SECONDS (9.0-12.0) INR International Normalized Ratio 1.1 INR Activated Partial Thromboplast Time 28 SECONDS (22-32) Coagulation Comments Date of Service: Mar 09, 2025 Billing Provider: NAYAN CAMPOS SUNIL KUMAR, RES Mar 09, 2025 09:57
[2025-03-09 10:40] VITALS: BP 121/74; PULSE 85; RESP 19; TEMP 98; O2SAT 98
[2025-03-09] MEDS ORDERED: BACL10TA2 PO (11:55)
[2025-03-09] MEDS ORDERED: LIDO-52 TD (11:55)
[2025-03-09] MEDS ORDERED: ASPI-1265 PO (11:55)
[2025-03-09] MEDS ORDERED: AMLO5TAB16 PO (11:55)
[2025-03-09] MEDS ORDERED: SERT-432 PO (11:55)
[2025-03-09] MEDS ORDERED: PANT-47 PO (11:55)
[2025-03-09] MEDS ORDERED: ATOR-429 PO (11:55)
[2025-03-09] MEDS ORDERED: METO-395 PO (11:55)
[2025-03-09] MEDS ORDERED: RISP-31 PO (11:55)
[2025-03-09] MEDS ORDERED: ALBU18HF2 INH (11:55)
--- NOTE | 2025-03-09 18:41 | CARDIOLOGY REPORT ---
APPROVED REPORT EXAM: Comprehensive 2D, Doppler, and color-flow Echocardiogram. Patient Location: 3015 [address] Blood Pressure: 121/74 mmHg Heart Rate: 70 bpm Rhythm: SINUS Indications CHEST PAIN SHORTNESS OF BREATH FATIGUE Cyber Security Consultant: none Previous echo: 10/24/24 [facility] (EF 65%, trace MR, trace TR) 2D Dimensions RVDd 3.3 cm LA Diam4.3 cm IVSd 0.9 (0.7-1.1cm) LVDd 4.2 cm PWd 0.8 (0.7-1.1cm) IVSs 1.1 (0.8-1.2cm) LVDs 3.0 (2.5-4.0cm) PWs 1.3 (0.8-1.2cm) LVOT Diameter 2.30 (1.8-2.4cm) LVEF(%) 53.4 (>50%) FS (%) 27.2 % SV 41.5 ml CO 2.7 L/min M-Mode Dimensions Left Atrium(MM) 3.48 (2.5-4.0cm) IVSd 1.13 (0.7-1.1cm) LVDd 4.09 (4.0-5.6cm) Aortic Root 3.11 (2.2-3.7cm) PWd 1.26 (0.7-1.1cm) IVSs 1.57 cm LVDs 3.13 (2.0-3.8cm) FS (%) 23 % PWs 1.48 cm ESV(Teich) 38.8 ml LVEF(%) 47 (>50%) Biplane 2D LA Volumes LA ESV Index 15.54 mL/m2 Aortic Valve AoV Peak Jethro. 87.7 cm/s AoV VTI 15.3 cm AO Peak GR. 3.1 mmHg AO Mean GR. 2 mmHg LVOT VTI 13.76 cm LVOT Peak Jethro. 78.7 cm/s MICHAEL(VTI)/BSA 3.72 cm2/m2 MICHAEL (VTI) 3.72 cm2 Mitral Valve MV E Velocity 57.0 cm/s MV Peak Gr. 2 mmHg MV DECEL TIME 308 ms MV A Velocity 49.1 cm/s MV PHT 56 ms E/A Ratio 1.2 MVA (PHT) 3.93 cm2 MV VMax64.1 cm/s TDI Medial E' P. V 10.90 cm/s E/Medial E' 5.2 Pulmonary Vein S1 Velocity 55.5 cm/s D2 Velocity 38.1 cm/s PVa Zifineap69.2 cm/s PVa [id number] msec LEFT VENTRICLE Normal LV size and wall thickness. Overall systolic function is mildly reduced to low normal. LVEF is 50-55%. RIGHT VENTRICLE RV is normal size and function. ATRIA LA size is normal. AORTIC VALVE Trileaflet AV appears mildly sclerotic without stenosis or insufficiency. MITRAL VALVE Mild MV annular calcification without stenosis. Trace regurgitation. TRICUSPID VALVE TV appears structurally normal with trace regurgitation. PULMONIC VALVE Normal PV without stenosis, physiologic insufficiency. GREAT VESSELS Aortic root is normal in size. PERICARDIUM Normal pericardium. No effusion. Other Information Study Quality: Adequate Conclusion Normal LV size and wall thickness. Overall systolic function is mildly reduced to low normal. LVEF is 50-55%. RV is normal size and function. LA size is normal. Trileaflet AV appears mildly sclerotic without stenosis or insufficiency. Mild MV annular calcification without stenosis. Trace regurgitation. TV appears structurally normal with trace regurgitation. Normal pericardium. No effusion.
--- NOTE | 2025-03-09 18:57 | DISCHARGE SUMMARY-Residence ---
Discharge Summary Providers to Resident Creating Document: LUISERINLIZETH OCHOA, RES ~ Discharge Summary Admission Diagnosis: Chest Pain Hospital Course DATE OF ADMISSION: 03/08/2025 DATE OF DISCHARGE: 03/09/2025 Imaging: Chest x-ray: No acute cardiopulmonary disease. Head CT: No acute intracranial abnormality. CTA head and neck: 1. No evidence of hemodynamically significant intracranial stenosis, proximal occlusion or aneurysm. 2. No evidence of hemodynamically significant cervical stenosis or dissection. Echocardiogram: Normal LV size and wall thickness. Overall systolic function is mildly reduced to low normal. LVEF is 50-55%. RV is normal size and function. LA size is normal. Trileaflet AV appears mildly sclerotic without stenosis or insufficiency. Mild MV annular calcification without stenosis. Trace regurgitation. TV appears structurally normal with trace regurgitation. Normal pericardium. No effusion. Discharge Diagnosis\Comment: Stable angina Ruled out acute coronary syndrome Hypertension History of thyroidectomy Bipolar disorder GERD Operations\Procedures: None Consultants: None Complications: None Condition on DC: Stable Discharge Summary: A 44 years old male patient with a past medical history of Peripheral Neuropathy, Asthma, Bronchitis, Diverticulitis, thyroidectomy, Chronic Back Pain, Cellulitis, Bipolar, Depression, Schizophrenia presented to the ER with chest pain and discomfort. Patient endorses that he had an argument with his roommate and felt stressed and then gradual chest pain started with radiation to his left jaw from today morning aggravated with exertion and mild relief with rest. He also reports mild SOB, fatigue.He states that his legs swell occasionally but they have not done so recently. He denies palpitations, syncope, dizziness, altered level of consciousness, arthralgias, rash, abdominal pain, nausea, vomiting, diarrhea, constipation. Course in the hospital: Patient was admitted for chest pain and discomfort. Troponin levels are within normal limits. Serial EKGs showed mild ST elevations in V2 V3 leads of 1 mm. Patient was treated with metoprolol succinate 50 mg, atorvastatin 80 mg. Overnight telemetry monitoring was normal. No acute overnight symptoms reported. LVEF is 50-55% with no valve abnormalities on echocardiogram 03/09/2025. Patient chest pain was resolved during the course of hospitalization. Patient denies any chest pain or discomfort today. Patient was advised to take aspirin 81 mg p.o. daily. Advised to take atorvastatin 80 mg p.o. daily for hyperlipidemia and repeat lipid panel after three months. Patient is stable at the time of discharge. Advised at discharge: Advised to take Atorvastatin 80 mg P.O daily by mouth Advised to take Aspirin 81 mg P.O daily by mouth Follow up with PCP after 1 week Repeat Lipid panel after 3 months In case of any recurrence of chest pain, Call 911 pr go to ED immediately The patient requested refill of all his medications for discharge Examination at discharge: Awake , alert and oriented to time,place, person, moderately built, not in distress. HEENT: Atraumatic, normocephalic, PEERLA, anicteric sclera ; pink conjunctiva Neck: Trachea midline. Supple, normal range of motion, no JVD Chest and Respiratory: Point tenderness to left anterior lower chest wall,Chest wall is symmetric and without deformity. Equal breath sounds bilaterally, no tachypnea, wheezing and ronchi are present. Cardiac: S1, S2 heard,Regular rate and rhythm, no murmurs heard. Abdomen: Abdomen symmetric, non-distended, soft,no tenderness, no guarding or rebound tenderness,normal bowel sounds x4 quadrant, normoactive, no hepatosplenomegaly MSK: Range of motion of all extremities are normal. There is no joint pain or joint swelling or joint erythema. There is no muscle pain or tenderness or swelling. Extremities: warm, well-perfused, No cyanosis, clubbing or edema, 2+ pulses felt Neurological: Speech is clear, alert, and oriented x 4. No sensory or motor deficits. Cranial nerves II-XII intact. Skin: Warm and dry Psychiatry: Affect and mood are normal The patient felt ready to be discharged and was medically cleared to be discharged on 03/09/2025 The patient was seen and evaluated on day of discharge. Time spent on discharge 40 minutes The patient recovered sooner than to be expected with chest pain with ischemic EKG changes. Laboratory Tests Test 03/08/25 08:14 03/08/25 08:42 03/08/25 09:50 03/08/25 11:14 White Blood Count 6.3 X10'3 Red Blood Count 5.10 X10'6 Hemoglobin 16.5 g/dl Hematocrit 47.7 % Mean Corpuscular Volume 93.5 FL Mean Corpuscular Hemoglobin 32.4 PG Mean Corpuscular Hemoglobin Concent 34.7 g/dL Red Cell Distribution Width 13.7 % Platelet Count 327 X10'3 Mean Platelet Volume 8.5 FL Neutrophils (%) (Auto) 51.9 % Lymphocytes (%) (Auto) 34.4 % Monocytes (%) (Auto) 7.9 % Eosinophils (%) (Auto) 4.2 % Basophils (%) (Auto) 1.6 % Neutrophils # (Auto) 3.3 X10'3 Lymphocytes # (Auto) 2.2 X10'3 Monocytes # (Auto) 0.5 X10'3 Eosinophils # (Auto) 0.3 X10'3 Basophils # (Auto) 0.1 X10'3 CBC Comment Prothrombin Time 10.9 SECONDS INR International Normalized Ratio 1.1 INR Activated Partial Thromboplast Time 28 SECONDS Coagulation Comments Sodium Level 141 MMOL/L Potassium Level 3.6 MMOL/L Chloride Level 104 MMOL/L Carbon Dioxide Level 28.4 MMOL/L Anion Gap 9 Blood Urea Nitrogen 11 MG/DL Creatinine 1.10 MG/DL Estimated GFR/1.73 m2 89 ML/MIN BUN/Creatinine Ratio 10.0 Glucose Level 101 MG/DL Hemoglobin A1c 5.4 % Calcium Level 9.3 MG/DL Phosphorus Level 3.5 MG/DL Troponin I High Sensitivity 4 ng/L 5 ng/L 5 ng/L Pro-B-Type Natriuretic Peptide < 30 PG/ML Albumin 4.2 G/DL Chemistry Comments Urine Specimen Description Cln catch midstream Urine Color Dark yellow Urine Clarity Clear Urine pH 6.0 Urine Specific [place] 1.025 Urine Protein 30 mg/dl Urine Glucose (UA) Negative mg/dl Urine Ketones Trace mg/dl Urine Occult Blood Negative Urine Nitrite Negative Urine Bilirubin Small Urine Urobilinogen 0.2 E.U/dL Urine Leukocyte Esterase Negative Urine RBC 0-2 /HPF Urine WBC 5-10 /HPF Urine Squamous Epithelial Cells Few /LPF Urine Transitional Epithelial Cells Few /HPF Urine Bacteria 1+ /HPF Urine Hyaline Casts 0-3 /LPF Urine Fine Granular Casts 0-3 /LPF Urine Mucus Few /LPF Urine Culture Indicated Indicated Volume Urine Centrifuged 10 ml Urine Comment Urine Opiates Screen Negative Urine Methadone Screen Negative Urine Fentanyl Screen Negative Urine Barbiturates Screen Negative Urine Phencyclidine Screen Negative Urine Amphetamines Screen Negative Urine Benzodiazepines Screen Negative Urine Cocaine Screen Negative Urine Cannabinoids Screen Positive Drug Screen Comment Troponin I High Sens Percent Delta 25 % 0 % Troponin I Hi Sens Absolute Change 1 ng/L 0 ng/L Test 03/08/25 19:56 03/09/25 06:22 Troponin I High Sensitivity 6 ng/L Troponin I High Sens Percent Delta 20 % Troponin I Hi Sens Absolute Change 1 ng/L White Blood Count 7.0 X10'3 Red Blood Count 5.13 X10'6 Hemoglobin 16.4 g/dl Hematocrit 48.0 % Mean Corpuscular Volume 93.6 FL Mean Corpuscular Hemoglobin 31.9 PG Mean Corpuscular Hemoglobin Concent 34.1 g/dL Red Cell Distribution Width 13.8 % Platelet Count 298 X10'3 Mean Platelet Volume 8.6 FL Neutrophils (%) (Auto) 48.4 % Lymphocytes (%) (Auto) 36.5 % Monocytes (%) (Auto) 9.3 % Eosinophils (%) (Auto) 5.0 % Basophils (%) (Auto) 0.8 % Neutrophils # (Auto) 3.4 X10'3 Lymphocytes # (Auto) 2.6 X10'3 Monocytes # (Auto) 0.7 X10'3 Eosinophils # (Auto) 0.4 X10'3 Basophils # (Auto) 0.1 X10'3 CBC Comment Sodium Level 137 MMOL/L Potassium Level 4.0 MMOL/L Chloride Level 102 MMOL/L Carbon Dioxide Level 24.3 MMOL/L Anion Gap 11 Blood Urea Nitrogen 15 MG/DL Creatinine 1.13 MG/DL Estimated GFR/1.73 m2 86 ML/MIN BUN/Creatinine Ratio 13.3 Glucose Level 91 MG/DL Calcium Level 9.3 MG/DL Total Bilirubin 0.6 MG/DL Aspartate Amino Transf (AST/SGOT) 15 U/L Alanine Aminotransferase (ALT/SGPT) 26 U/L Alkaline Phosphatase 71 IU/L Total Protein 7.9 G/DL Albumin 3.9 G/DL Globulin 4.0 G/DL Albumin/Globulin Ratio 1.0 Triglycerides Level 74 MG/DL Cholesterol Level 255 MG/DL LDL Cholesterol 161 MG/DL HDL Cholesterol 66 MG/DL Cholesterol/HDL Ratio 3.9 Thyroid Stimulating Hormone (TSH) 2.01 ulU/ml Chemistry Comments *Problems/Diagnosis: (1) Stable angina (2) History of thyroidectomy (3) Hypertension (4) Hyperlipidemia Total Time Spent on D/C: > 30 Minutes Date of Service: Mar 09, 2025 Billing Provider: NAYAN CAMPOS DO Common Visit Codes: 57024-[id number]/[id number] DISCH DAY >30min ERIN SMITH, RES Mar 09, 2025 18:42 NAYAN CAMPOS DO Mar 09, 2025 19:53
== END 2025-03-09 13:09 | disposition home or self-care (01) | DRG 198 ==
LOC: ER 07:44 → ED HOLD 12:21 → PCU 3S 13:43
PROVIDERS: ADMIT Family Medicine; ATTEND Family Medicine
PROC: B3251ZZ Computerized Tomography (CT Scan) of Bilateral Common Carotid Arteries using Low Osmolar Contrast (ICD-10-PCS; principal; 2025-03-08)
PROC: B32G1ZZ Computerized Tomography (CT Scan) of Bilateral Vertebral Arteries using Low Osmolar Contrast (ICD-10-PCS; 2025-03-08)
PROC: B32R1ZZ Computerized Tomography (CT Scan) of Intracranial Arteries using Low Osmolar Contrast (ICD-10-PCS; 2025-03-08)
PROC: B3281ZZ Computerized Tomography (CT Scan) of Bilateral Internal Carotid Arteries using Low Osmolar Contrast (ICD-10-PCS; 2025-03-08)
DX: I20.89 Other forms of angina pectoris (principal); E89.0 Postprocedural hypothyroidism; F31.9 Bipolar disorder, unspecified; K21.9 Gastro-esophageal reflux disease without esophagitis; G62.9 Polyneuropathy, unspecified; J45.909 Unspecified asthma, uncomplicated; M54.9 Dorsalgia, unspecified; G89.29 Other chronic pain; F20.9 Schizophrenia, unspecified; I10 Essential (primary) hypertension; R94.31 Abnormal electrocardiogram [ECG] [EKG]; F17.210 Nicotine dependence, cigarettes, uncomplicated; Z83.3 Family history of diabetes mellitus; Z59.00 Homelessness unspecified; Z82.49 Family history of ischemic heart disease and other diseases of the circulatory system; Z91.199 Patient's noncompliance with other medical treatment and regimen due to unspecified reason; Z88.0 Allergy status to penicillin; Z88.5 Allergy status to narcotic agent
CPT/HCPCS: 36415; 70450; 70496; 70498; 71045; 80048; 80053; 80061; 80305; 81001; 83036; 83880; 84100; 84443; 84484; 85025; 85610; 85730; 87081; 87088; 93005; 93306; G0378; J1200; J1644; J2270; J2470; Q9967

== ENCOUNTER 2025-06-14 06:45 | Emergency (ER) | payer MEDICAID ==
[~2025-06-14] VITALS: Ht 172.7 cm; Wt 75.0 kg
[~2025-06-14 06:45] MED LIST changes: +ASPI-1265 PO; +ATOR-429 PO; -ATOR10TA PO; -HYDR-3686; -IBUP-1986 PO; -LIDO-52 TOP; -PALI3TAB5 PO; +RISP-31 PO; +SERT-432 PO; -SUCR1TAB34 PO
[2025-06-14 07:01] VITALS: BP 131/95; PULSE 89; RESP 15; TEMP 97.6; O2SAT 99
--- NOTE | 2025-06-14 07:31 | Physician Documentation ---
HPI ~ General Chief Complaint: Medication Request Stated Complaint: LOWER BACK PAIN Time Seen by MD: 07:31 Primary Medical Doctor: [facility] History of Present Illness HPI Comments 44-year-old male who presents requesting refills of his medications. He tells me that he [facility], but he was not able to get his medications filled there and so he came here hoping to get refills. He does report having a muscle strain in his right lower back, and has been us ing a lidocaine patch. He has not taken any other medications today. No other acute medical concerns Reason for Medication Refill: ran out of medication Medication Reconciliation Allergies: Coded Allergies: Penicillins (Verified Allergy, Unknown, 06/14/25) codeine (Verified Allergy, Unknown, 06/14/25) morphine (Verified Allergy, Unknown, 06/14/25) Scheduled Amlodipine Besylate (Amlodipine Besylate), 1 TAB PO DAILY Aspirin (Aspirin), 1 TAB PO DAILY Atorvastatin Calcium* (Lipitor*), 1 TAB PO DAILY Baclofen (Baclofen), 1 TAB PO Q8H Lidocaine (Lidoderm), 1 PATCH TD DAILY Metoprolol Succinate (Metoprolol Succinate), 25 MG PO DAILY Pantoprazole Sodium (PROTONIX tablet), 1 TAB PO DAILY Risperidone (Risperidone), 1 TAB PO BID Sertraline HCl (Sertraline HCl), 1 TAB PO DAILY Discontinued Medications Albuterol Sulfate (Ventolin Hfa), 2 PUFFS INH Q4HPRN PRN for SOB or wheezing Discontinued Reason: patient no longer taking Diphenhydramine Hcl (Benadryl), 2 CAP PO Q8HPRN PRN for ITCHING Discontinued Reason: patient no longer taking Past Medical History Past Medical History: Peripheral Neuropathy, Asthma, Bronchitis, Diverticu litis, Thyroid (unspecified), Chronic Back Pain, Cellulitis, *PSYCH*, Bipolar, Depression, Schizophrenia Past Surgical History: other Other Past Surgical History: Thyroid removal Patient History: FH: cancer FATHER, , Cause: Cancer FH: diabetes mellitus FATHER, , Cause: Cancer FH: hypertension MOTHER Other Past Family History: NONCONTRIBUTORY Alcohol Use: Occasionally Drug Use: marijuana Lives with: Other Lives In: Homeless Occupation: disabled Review of Systems Musculoskeletal: Reports: back pain Physical Exam Physical Exam Vital Signs: Temperature: 97.6, Source: Temporal, Heart Rate: 89, Respiratory Rate: 15, BP: 131/95, Pulse Oximetry: 99, Weight: 75.000 Physical Exam General: This is a pleasant young man sitting calmly in bed Heart: Regular rate, normal-appearing peripheral perfusion Lungs: normal work of breathing, normal oxygen saturation on room air Neuro: Alert and oriented Psychiatric: Calm and cooperative with exam Progress Results/Orders Results/Orders Completed Orders - ANGY CABALLERO MD Ibuprofen Tablet (Motrin Tablet) (06/14/25 07:35) Ibuprofen Tablet (Motrin Tablet) (06/14/25 07:40) Medications Received in ER Medications (Trade) Dose Ordered Sig/Nai Route PRN Reason Start Time Stop Time Status Last Admin Dose Admin (Motrin tablet) 600 mg ONCE ONCE PO 06/14/25 07:40 06/14/25 07:41 DC 06/14/25 07:55 600 MG Vital Signs 06/14/25 07:01 Temp 97.6 Pulse 89 Resp 15 B/P (MAP) 131/95 Pulse Ox 99 Medical Decision Making Additional information obtaine: old records Findings Reviewed past records for his medications Differential Dx:Considerations: Include: Medical services unavail., Medication refill Additional Comment The patient presents requesting medication refill. He has a low back strain, and was given ibuprofen, but has no other acute medical concerns. Refills were sent to the pharmacy for his medications. Departure Disposition: HOME / SELF CARE / HOMELESS Impression: Primary Impression: General medical exam Additional Impression: Medication refill Condition: Stable Discharge Instructions: Medicine Refill at the Emergency Department Referrals: NO PRIMARY CARE PROVIDER (PCP) Prescriptions Aspirin (Aspirin) 81 Mg Tab.chew 1 TAB PO DAILY, #30 TAB.CHEW 1 Refill Prov: ANGY CABALLERO MD 06/14/25 Sertraline HCl (Sertraline HCl) 25 Mg Tablet 1 TAB PO DAILY, #30 TAB 1 Refill Prov: ANGY CABALLERO MD 06/14/25 Risperidone (Risperidone) 1 Mg Tablet 1 TAB PO BID, #60 TAB 1 Refill Prov: ANGY CABALLERO MD 06/14/25 Lidocaine (Lidoderm) 5 % Adh..patch 1 PATCH TD DAILY, #10 PATCH 1 Refill Apply 1 patch daily for 12 hours then off for 12 hours May sub 15 grams 4 pct lidocaine cream if patches are cost peohibitive Prov: ANGY CABALLERO MD 06/14/25 Baclofen (Baclofen) 10 Mg Tablet 1 TAB PO Q8H for 10 Days, #30 TAB 1 Refill Prov: ANGY CABALLERO MD 06/14/25 Amlodipine Besylate (Amlodipine Besylate) 5 Mg Tablet 1 TAB PO DAILY for 30 Days, #30 TAB 1 Refill Prov: ANGY CABALLERO MD 06/14/25 Metoprolol Succinate (Metoprolol Succinate) 25 Mg Tab.sr.24h 25 MG PO DAILY for 30 Days, #30 TAB.SR 1 Refill Prov: ANGY CABALLERO MD 06/14/25 Atorvastatin Calcium* (Lipitor*) 80 Mg Tablet 1 TAB PO DAILY for 30 Days, #30 TAB 1 Refill Prov: ANGY CABALLERO MD 06/14/25 Pantoprazole Sodium (PROTONIX tablet) 40 Mg Tablet.dr 1 TAB PO DAILY for 30 Days, #30 TAB 1 Refill Prov: ANGY CABALLERO MD 06/14/25 Education Educated: Patient Educated regarding: diagnosis, need for follow up Signature Scribe Signature: patty Attestation: ANGY Carmen MD Jun 14, 2025 07:31
[2025-06-14] MEDS: ibuprofen tablet 400 MG TABLET PO ONE (07:55)
[2025-06-14] MEDS ORDERED: ATOR-429 PO (07:58)
[2025-06-14] MEDS ORDERED: BACL10TA2 PO (07:58)
[2025-06-14] MEDS ORDERED: METO-395 PO (07:58)
[2025-06-14] MEDS ORDERED: ASPI-1265 PO (07:58)
[2025-06-14] MEDS ORDERED: LIDO-52 TD (07:58)
[2025-06-14] MEDS ORDERED: RISP-31 PO (07:58)
[2025-06-14] MEDS ORDERED: AMLO5TAB16 PO (07:58)
[2025-06-14] MEDS ORDERED: PANT-47 PO (07:58)
[2025-06-14] MEDS ORDERED: SERT-432 PO (07:58)
== END 2025-06-14 08:29 | disposition home or self-care (01) ==
LOC: ER 06:46
DX: Z00.00 Encounter for general adult medical examination without abnormal findings (principal); Z76.0 Encounter for issue of repeat prescription; G62.9 Polyneuropathy, unspecified; F12.90 Cannabis use, unspecified, uncomplicated; F20.9 Schizophrenia, unspecified; F31.9 Bipolar disorder, unspecified; G89.29 Other chronic pain; J45.909 Unspecified asthma, uncomplicated; Z88.0 Allergy status to penicillin; Z88.5 Allergy status to narcotic agent; Z79.899 Other long term (current) drug therapy; Z59.00 Homelessness unspecified; Z72.89 Other problems related to lifestyle
CPT/HCPCS: 99283